=== PATIENT | female | born 1970 | race Caucasian/White ===

== ENCOUNTER 2018-09-11 22:21 | Inpatient (IN) | payer OTHER ==
[~2018-09-11] VITALS: Ht 160 cm; Wt 116.7 kg
[2018-09-11 23:26] LABS: BILIRUBIN,URINE NEGATIVE (NEG); CLARITY,URINE CLEAR; COLOR,URINE YELLOW; NITRITE,URINE NEGATIVE (NEG); PH,URINE 7.5; PROTEIN,URINE NEGATIVE (NEG-TRACE); UROBILINOGEN,URINE 0.2 mg/dL (0.2 mg/dL)
[2018-09-11 23:28] LABS: BASO # 0.1 x10^3/uL (0.0-0.2); BASO % 1 % (0-3); EOS # 0.2 x10^3/uL (0.0-0.7); EOS % 3 % (0-3); HEMATOCRIT 44.9 % (36.0-47.0); HEMOGLOBIN 14.7 g/dL (12.0-15.5); LYMPH # 2.3 x10^3/uL (1.0-4.8); LYMPH % 38 % (24-48); MEAN CORPUSCULAR HEMOGLOBIN 29 pg (25-35); MEAN CORPUSCULAR HGB CONC 33 g/dL (31-37); MEAN CORPUSCULAR VOLUME 89 fL (79-100); MONO # 0.5 x10^3/uL (0.0-1.1); MONO % 9 % (0-9); NEUT # 3.1 x10^3uL (1.8-7.7); NEUT % 50 % (31-73); PLATELET COUNT 119 x10^3/uL (140-400); RED BLOOD COUNT 5.07 x10^6/uL (3.50-5.40); RED CELL DISTRIBUTION WIDTH 12.8 % (11.5-14.5); WHITE BLOOD COUNT 6.2 x10^3/uL (4.0-11.0)
[2018-09-11] MEDS ORDERED: dilTIAZem IV PUSH 25 MG/5 ML VIAL IVP ONE (23:30)
[2018-09-11 23:33] LABS: BACTERIA,URINE 0 /HPF (0-FEW); RBC,URINE 0 /HPF (0-2); SQUAMOUS EPITHELIAL CELL,UR MOD /LPF
[2018-09-11 23:40] LABS: CALCIUM 9.1 mg/dL (8.5-10.1); CREATININE 0.6 mg/dL (0.6-1.0); GFR 105.8
[2018-09-11 23:46] LABS: ALBUMIN 3.8 g/dL (3.4-5.0); ALBUMIN/GLOBULIN RATIO 0.9 (1.0-1.7); MAGNESIUM 2.2 mg/dL (1.8-2.4); TOTAL BILIRUBIN 0.6 mg/dL (0.2-1.0); TOTAL PROTEIN 8.1 g/dL (6.4-8.2)
--- NOTE | 2018-09-12 00:26 | PHYS DOC ---
Past Medical History Past Medical History: A-Fib Additional Past Medical Histor: A FLUTTER Past Surgical History: Additional Past Surgical Histo: C SECTION X 4, HEART ABLATION Alcohol Use: None Drug Use: None Adult General Chief Complaint Chief Complaint: Palpitations [facility] HPI Patient is a 48-year-old female who presents with complaint of palpitations and chest pressure. Patient states that symptoms started earlier this evening and have progressively gotten worse. She states that she has a history of atrial flutter and had an ablation for that a few years back and then later had been diagnosed with intermittent atrial fibrillation. Patient is on Flecainide and a couple of other medications. Currently she rates the discomfort in her chest at about a 3 out of 10. She admits to some waves of nausea but denies any diaphoresis. Patient states that symptoms are worsened with exertion. Review of Systems Review of Systems Constitutional: Denies fever or chills [] Respiratory: Denies cough or shortness of breath [] Cardiovascular: No additional information not addressed in HPI [] GI: Denies abdominal pain. Admits to nausea without vomiting [] Integument: Denies rash or skin lesions [] Neurologic: Denies headache, focal weakness or sensory changes [] All other systems were reviewed and found to be within normal limits, except as documented in this note. Current Medications Current Medications Current Medications Medications (Trade) Dose Ordered Sig/Fer Start Time Stop Time Status Last Admin Dose Admin Diltiazem HCl (Cardizem Iv Push) 20 mg 1X ONCE 09/11/18 23:30 09/11/18 23:31 DC 09/11/18 23:23 20 MG Allergies Allergies Allergies Coded Allergies Type Severity Reaction Last Updated Verified morphine Allergy Intermediate 09/11/18 Yes Physical Exam Physical Exam Constitutional: Well developed, well nourished, no acute distress, non-toxic appearance. [] HENT: Normocephalic, atraumatic, bilateral external ears normal, oropharynx moist, no oral exudates, nose normal. [] Eyes: PERRLA, EOMI, conjunctiva normal, no discharge. [] Neck: Normal range of motion, no tenderness, supple, no stridor. [] Cardiovascular: Markedly tachycardic rate with irregular rhythm[] Lungs & Thorax: Bilateral breath sounds clear to auscultation [] Abdomen: Bowel sounds normal, soft, no tenderness. [] Skin: Warm, dry, no erythema, no rash. [] Extremities: No tenderness, no cyanosis, no clubbing, ROM intact, no edema. [] Neurologic: Alert and oriented X 3, no focal deficits noted. [] Current Patient Data Vital Signs Vital Signs Date Time Temp Pulse Resp B/P (MAP) Pulse Ox O2 Delivery O2 Flow Rate FiO2 09/11/18 23:29 111 18 136/73 (94) 99 Room Air 09/11/18 22:21 98.8 98.8 Lab Values Laboratory Tests Test 09/11/18 23:05 09/11/18 23:19 09/11/18 23:20 Urine Collection Type Unknown Urine Color Yellow Urine Clarity Clear Urine pH 7.5 Urine Specific [place] <=1.005 Urine Protein Negative mg/dL (NEG-TRACE) Urine Glucose (UA) Negative mg/dL (NEG) Urine Ketones (Stick) Negative mg/dL (NEG) Urine Blood Negative (NEG) Urine Nitrite Negative (NEG) Urine Bilirubin Negative (NEG) Urine Urobilinogen Dipstick 0.2 mg/dL (0.2 mg/dL) Urine Leukocyte Esterase Small (NEG) Urine RBC 0 /HPF (0-2) Urine WBC 1-4 /HPF (0-4) Urine Squamous Epithelial Cells Mod /LPF Urine Bacteria 0 /HPF (0-FEW) POC Urine HCG, Qualitative Hcg negative (Negative) White Blood Count 6.2 x10^3/uL (4.0-11.0) Red Blood Count 5.07 x10^6/uL (3.50-5.40) Hemoglobin 14.7 g/dL (12.0-15.5) Hematocrit 44.9 % (36.0-47.0) Mean Corpuscular Volume 89 fL (79-100) Mean Corpuscular Hemoglobin 29 pg (25-35) Mean Corpuscular Hemoglobin Concent 33 g/dL (31-37) Red Cell Distribution Width 12.8 % (11.5-14.5) Platelet Count 119 x10^3/uL (140-400) L Neutrophils (%) (Auto) 50 % (31-73) Lymphocytes (%) (Auto) 38 % (24-48) Monocytes (%) (Auto) 9 % (0-9) Eosinophils (%) (Auto) 3 % (0-3) Basophils (%) (Auto) 1 % (0-3) Neutrophils # (Auto) 3.1 x10^3uL (1.8-7.7) Lymphocytes # (Auto) 2.3 x10^3/uL (1.0-4.8) Monocytes # (Auto) 0.5 x10^3/uL (0.0-1.1) Eosinophils # (Auto) 0.2 x10^3/uL (0.0-0.7) Basophils # (Auto) 0.1 x10^3/uL (0.0-0.2) Sodium Level 142 mmol/L (136-145) Potassium Level 4.0 mmol/L (3.5-5.1) Chloride Level 105 mmol/L (98-107) Carbon Dioxide Level 27 mmol/L (21-32) Anion Gap 10 (6-14) Blood Urea Nitrogen 14 mg/dL (7-20) Creatinine 0.6 mg/dL (0.6-1.0) Estimated GFR (Cockcroft-Gault) 105.8 BUN/Creatinine Ratio 23 (6-20) H Glucose Level 119 mg/dL (70-99) H Calcium Level 9.1 mg/dL (8.5-10.1) Magnesium Level 2.2 mg/dL (1.8-2.4) Total Bilirubin 0.6 mg/dL (0.2-1.0) Aspartate Amino Transferase (AST) 29 U/L (15-37) Alanine Aminotransferase (ALT) 59 U/L (14-59) Alkaline Phosphatase 81 U/L (46-116) Troponin I Quantitative < 0.017 ng/mL (0.000-0.055) FR-Wjo-A-Type Natriuretic Peptide 52 pg/mL (0-124) Total Protein 8.1 g/dL (6.4-8.2) Albumin 3.8 g/dL (3.4-5.0) Albumin/Globulin Ratio 0.9 (1.0-1.7) L Thyroid Stimulating Hormone (TSH) 1.846 uIU/mL (0.358-3.74) Laboratory Tests 09/11/18 23:20 Laboratory Tests 09/11/18 23:20 EKG EKG [] Interpretation Time: EKG demonstrates atrial fibrillation with rapid ventricular response of 132. Radiology/Procedures Radiology/Procedures [] Impressions: Chest x-ray demonstrates no acute process. Course & Med Decision Making Course & Med Decision Making Pertinent Labs and Imaging studies reviewed. (See chart for details) [] Dragon Disclaimer Dragon Disclaimer This electronic medical record was generated, in whole or in part, using a voice recognition dictation system. Departure Departure Impression: Primary Impression: Atrial fibrillation with rapid ventricular response Additional Impression: Chest pain Disposition: ADMITTED INPATIENT Admitting Physician: Demetria Pham Condition: IMPROVED Referrals: UNKNOWN PCP NAME (PCP) Problem Qualifiers Additional Impression: Chest pain Chest pain type: unspecified Qualified Codes: R07.9 - Chest pain, unspecified MIRYAM TENORIO Jr. DO Sep 12, 2018 00:26
[2018-09-12] MEDS ORDERED: fentaNYL PF VIAL 100 MCG/2 ML VIAL IV PRN (00:30)
[2018-09-12] MEDS ORDERED: ONDANSETRON PF 4 MG/2 ML VIAL. IV PRN (00:30)
[2018-09-12] MEDS ORDERED: IV NORMAL SALINE 1000ML BAG 1,000 ML IV SCH (01:00)
[2018-09-12] MEDS ORDERED: FISH1CAP PO (02:48)
[2018-09-12] MEDS ORDERED: GLUC100018 PO (02:48)
[2018-09-12] MEDS ORDERED: ASPI81TA59 PO (02:48)
[2018-09-12] MEDS ORDERED: BISO5TAB2 PO (02:48)
[2018-09-12] MEDS ORDERED: FLEC100T PO (02:48)
[2018-09-12] MEDS ORDERED: CHOL10003 PO (02:48)
[2018-09-12 03:54] VITALS: BP 102/58
[2018-09-12 04:52] LABS: CHOLESTEROL/HDL RATIO 4.6
--- NOTE | 2018-09-12 06:52 | EKG ---
[facility] [address] [place] [address] Test Date: 2018-09-11 Test Time: 22:29:11 Pat Name: PRASAD AMAYA Department: Room: 244 1 Gender: F Material Processor: : 1970 Requested By: MIRYAM TENORIO Order Number: [id number] Reading MD: Dariusz Dow MD Measurements Intervals [place] Rate: 132 P: IN: QRS: 28 QRSD: 88 T: -6 QT: 276 QTc: 411 Interpretive Statements ATRIAL FIB./FLUTTER WITH RAPID VENTRICULAR RESPONSE ST & T ABNORMALITY, CONSIDER INFERIOR ISCHEMIA OR LEFT VENTRICULAR STRAIN T ABNORMALITY IN HIGH LATERAL LEADS ABNORMAL ECG Electronically Signed On 09-15-2018 16:08:42 CDT by Dariusz Dow MD
[2018-09-12 07:00] VITALS: BP 135/71
--- NOTE | 2018-09-12 08:23 | RAD ---
Indication:palpitations TECHNIQUE:Portable AP chest X-ray COMPARISON:None FINDINGS: Heart is normal in size. Mild prominence of bronchovascular markings seen. No focal consolidation. No pneumothorax or pleural effusion. Visualized bony thorax is within normal limits. IMPRESSION: Prominent bilateral bronchovascular markings may secondary to bronchitis or pulmonary vascular congestion. Electronically signed by: Adelso Hill DO (09/12/2018 8:20 AM) [facility]
--- NOTE | 2018-09-12 10:21 | PDOC2 ---
CARDIAC CONSULT DATE OF CONSULT Date of Consult DATE: 09/12/18 TIME: 10:17 REASON FOR CONSULT Reason for Consult: AFIB RVR with chest pain REFERRING PHYSICIAN Referring Physician: Manish SOURCE Source: Chart review, Patient HISTORY OF PRESENT ILLNESS HISTORY OF PRESENT ILLNESS This is a pleasant 48 yo female admitted for complains of palpitations. Pt has been exercising 30 minutes a day with cardio in the last month. She also helped her friend clean her basement the other day and was coughing probably from mold exposure but no significant coughing yesterday. She was sitting last night when she felt flushed and dizzy then had the chest pressure and felt that her heart rate was fast. She has hx of AFIB and atrial flutter and upon admission to ED she was noted with afib RVR. She has been taking bisoprolol, flecainide and ASA since 2005. Reports being initially diagnosed with atrial flutter in 2002 to which she had a cardiac ablation. There has been no changes in her health recently. She has CRISTI and uses her CPAP and her CRISTI has been controlled. No excessive caffeine use, no use of decongestants and no recent injury or falls. No passing out. She is due to see Dr. Escoto her silviculturist from in a month. No significant chnages in her wt. No recent fever, chills and no diarrhea, nausea or vomiting. PAST MEDICAL HISTORY Cardiovascular: AFIB Musculoskeletal: Osteoarthritis, Other (morbid obesity) PAST SURGICAL HISTORY Past Surgical History: (x4), Other (Cardiac ablation) FAMILY HISTORY Family History: Other (arrhythmia (mother); daughter has WPW) SOCIAL HISTORY Smoke: No ALCOHOL: none Drugs: None Lives: with Family (spouse) CURRENT MEDICATIONS CURRENT MEDICATIONS Current Medications Medications (Trade) Dose Ordered Sig/Fer Route PRN Reason Start Time Stop Time Status Last Admin Dose Admin Diltiazem HCl (Cardizem Iv Push) 20 mg 1X ONCE IVP 09/11/18 23:30 09/11/18 23:31 DC 09/11/18 23:23 Sodium Chloride 1,000 ml @ 100 mls/hr Q10H IV 09/12/18 01:00 09/13/18 00:59 09/12/18 01:40 ALLERGIES ALLERGIES: Coded Allergies: morphine (Verified Allergy, Intermediate, 09/11/18) ROS Review of System 14 point ROS evaluated with pertinent positives noted per HPI PHYSICAL EXAM General: Alert, Oriented X3, Cooperative, No acute distress HEENT: Atraumatic, Mucous membr. moist/pink Lungs: Clear to auscultation, Normal air movement Heart: Regular rate (SR), Normal S1, Normal S2, No murmurs Abdomen: Soft, No tenderness Extremities: No cyanosis, No edema Skin: No breakdown, No significant lesion Neuro: Normal speech, Sensation intact Psych/Mental Status: Mental status NL, Mood NL MUSCULOSKELETAL: Osteoarthritic changes both hands VITALS VITALS Vital Signs Date Time Temp Pulse Resp B/P (MAP) Pulse Ox O2 Delivery O2 Flow Rate FiO2 09/12/18 08:00 Room Air 09/12/18 07:00 97.9 70 20 135/71 (92) 96 97.9 LABS Lab: Laboratory Tests Test 09/11/18 23:05 09/11/18 23:19 09/11/18 23:20 09/12/18 03:30 Urine Collection Type Unknown Urine Color Yellow Urine Clarity Clear Urine pH 7.5 Urine Specific [place] <=1.005 Urine Protein Negative mg/dL (NEG-TRACE) Urine Glucose (UA) Negative mg/dL (NEG) Urine Ketones (Stick) Negative mg/dL (NEG) Urine Blood Negative (NEG) Urine Nitrite Negative (NEG) Urine Bilirubin Negative (NEG) Urine Urobilinogen Dipstick 0.2 mg/dL (0.2 mg/dL) Urine Leukocyte Esterase Small (NEG) Urine RBC 0 /HPF (0-2) Urine WBC 1-4 /HPF (0-4) Urine Squamous Epithelial Cells Mod /LPF Urine Bacteria 0 /HPF (0-FEW) Bedside Urine HCG, Qualitative Hcg negative (Negative) White Blood Count 6.2 x10^3/uL (4.0-11.0) Red Blood Count 5.07 x10^6/uL (3.50-5.40) Hemoglobin 14.7 g/dL (12.0-15.5) Hematocrit 44.9 % (36.0-47.0) Mean Corpuscular Volume 89 fL (79-100) Mean Corpuscular Hemoglobin 29 pg (25-35) Mean Corpuscular Hemoglobin Concent 33 g/dL (31-37) Red Cell Distribution Width 12.8 % (11.5-14.5) Platelet Count 119 x10^3/uL (140-400) Neutrophils (%) (Auto) 50 % (31-73) Lymphocytes (%) (Auto) 38 % (24-48) Monocytes (%) (Auto) 9 % (0-9) Eosinophils (%) (Auto) 3 % (0-3) Basophils (%) (Auto) 1 % (0-3) Neutrophils # (Auto) 3.1 x10^3uL (1.8-7.7) Lymphocytes # (Auto) 2.3 x10^3/uL (1.0-4.8) Monocytes # (Auto) 0.5 x10^3/uL (0.0-1.1) Eosinophils # (Auto) 0.2 x10^3/uL (0.0-0.7) Basophils # (Auto) 0.1 x10^3/uL (0.0-0.2) Sodium Level 142 mmol/L (136-145) Potassium Level 4.0 mmol/L (3.5-5.1) Chloride Level 105 mmol/L (98-107) Carbon Dioxide Level 27 mmol/L (21-32) Anion Gap 10 (6-14) Blood Urea Nitrogen 14 mg/dL (7-20) Creatinine 0.6 mg/dL (0.6-1.0) Estimated GFR (Cockcroft-Gault) 105.8 BUN/Creatinine Ratio 23 (6-20) Glucose Level 119 mg/dL (70-99) Calcium Level 9.1 mg/dL (8.5-10.1) Magnesium Level 2.2 mg/dL (1.8-2.4) Total Bilirubin 0.6 mg/dL (0.2-1.0) Aspartate Amino Transf (AST/SGOT) 29 U/L (15-37) Alanine Aminotransferase (ALT/SGPT) 59 U/L (14-59) Alkaline Phosphatase 81 U/L (46-116) Troponin I Quantitative < 0.017 ng/mL (0.000-0.055) < 0.017 ng/mL (0.000-0.055) OZ-Hgs-I-Type Natriuretic Peptide 52 pg/mL (0-124) Total Protein 8.1 g/dL (6.4-8.2) Albumin 3.8 g/dL (3.4-5.0) Albumin/Globulin Ratio 0.9 (1.0-1.7) Thyroid Stimulating Hormone (TSH) 1.846 uIU/mL (0.358-3.74) Triglycerides Level 70 mg/dL (0-150) Cholesterol Level 190 mg/dL (0-200) LDL Cholesterol, Calculated 135 mg/dL (0-100) VLDL Cholesterol, Calculated 14 mg/dL (0-40) Non-HDL Cholesterol Calculated 149 mg/dL (0-129) HDL Cholesterol 41 mg/dL (40-60) Cholesterol/HDL Ratio 4.6 Test 09/12/18 06:20 Troponin I Quantitative < 0.017 ng/mL (0.000-0.055) ASSESSMENT/PLAN ASSESSMENT/PLAN 1. AFIB RVR: paroxysmal by hx with past ablation. SR after cardizem IV 2. Morbid obesity 3. HLP 4. CRISTI: with CPAP use at home 5. Contraception: Mirena in place Recommendations 1. TTE 2. Diet modification and wt loss 3. Await EKG. Continue flecainide and switching from zebeta to cardizem CD pending TTE and EKG 4. Will need outpt event monitor and note AFIB burden for further consideration for repeat EP ablation. Will defer this to cardiology whom she will see next month. 5. also would need to consider outpt stress test if none done recently. VICKIE HARVEY APRN Sep 12, 2018 10:21
[2018-09-12 10:36] VITALS: BP 144/85
--- NOTE | 2018-09-12 10:39 | PDOC1 ---
History and Physical Date of Admission Date of Admission 09/12/18 Identification/Chief Complaint Chief Complaint Palpitations Problems: (1) Atrial fibrillation with rapid ventricular response (2) Chest pain Source Source: Chart review, Patient History of Present Illness History of Present Illness Patient with past medical history of atrial fibrillation status post ablation comes somnolence that palpitations sensation of heart racing and chest discomfort she describes as a pressure no sensation of impending doom nausea vomiting or diaphoresis associated with the events. The patient denies recent changes to her medications. The patient denies changes in her medications no herbal supplements no history of energy drinks intake ER history: Patient is a 48-year-old female who presents with complaint of palpitations and chest pressure. Patient states that symptoms started earlier this evening and have progressively gotten worse. She states that she has a history of atrial flutter and had an ablation for that a few years back and then later had been diagnosed with intermittent atrial fibrillation. Patient is on Flecainide and a couple of other medications. Currently she rates the discomfort in her chest at about a 3 out of 10. She admits to some waves of nausea but denies any diaphoresis. Patient states that symptoms are worsened with exertion. Past Medical History Cardiovascular: AFIB Past Surgical History Past Surgical History: (x4), Other (Cardiac ablation) Current Problem List Problem List Problems Medical Problems: (1) Atrial fibrillation with rapid ventricular response Status: Acute (2) Chest pain Status: Acute Current Medications Current Medications Current Medications Medications (Trade) Dose Ordered Sig/Fer Start Time Stop Time Status Last Admin Dose Admin Diltiazem HCl (Cardizem Iv Push) 20 mg 1X ONCE 09/11/18 23:30 09/11/18 23:31 DC 09/11/18 23:23 20 MG Fentanyl Citrate (Fentanyl 2ml Vial) 25 mcg PRN Q2HR PRN 09/12/18 00:30 Ondansetron HCl (Zofran) 4 mg PRN Q8HRS PRN 09/12/18 00:30 09/13/18 00:29 Sodium Chloride 1,000 ml @ 100 mls/hr Q10H 09/12/18 01:00 09/13/18 00:59 09/12/18 01:40 100 MLS/HR Allergies Allergies Allergies Coded Allergies Type Severity Reaction Last Updated Verified morphine Allergy Intermediate 09/11/18 Yes ROS Review of System CONSTITUTIONAL: No fever or chills EYES: No recent changes SKIN: No rash or itching CARDIOVASCULAR: No chest pain, syncope, palpitations, or edema RESPIRATORY: No SOB or cough GASTROINTESTINAL: No nausea, vomiting or abdominal pain NEUROLOGICAL: No headaches or weakness ENDOCRINE: No cold or heat intolerance GENITOURINARY: No urgency or frequency of urination MUSCULOSKELETAL: No back pain or joint pain LYMPHATICS: No enlarged lymph nodes PSYCHIATRIC: No anxiety or depression Physical Exam Physical Exam Gen.: well-developed well-nourished in no apparent distress Head: Normal shape atraumatic Eyes: Pupils equal reactive to light and accommodation, normal conjunctivae and lids Ears: Normal shape Nose: Normal shape no trauma Mouth: No exudates of the back of throat no thrush no lesions Neck: Supple no JVD no carotid bruit or lymphadenopathy no thyromegaly Chest: Lungs clear to auscultation with good inspiratory effort no crackles rales or rhonchi Cardiovascular: S1-S2 regular rhythm no murmurs gallops or rubs Abdomen: Bowel sounds present soft nontender no hepatosplenomegaly appreciated sign Extremities: No clubbing no cyanosis no edema peripheral pulses palpated bilaterally Neurological: Alert awake oriented in person time place and situation, cranial nerves II through XII intact, no motor or sensory deficits appreciated Psych: Appropriate mood, cooperative Vitals Vitals Vital Signs Date Time Temp Pulse Resp B/P (MAP) Pulse Ox O2 Delivery O2 Flow Rate FiO2 09/12/18 08:00 Room Air 09/12/18 07:00 97.9 70 20 135/71 (92) 96 97.9 Labs Labs Laboratory Tests Test 09/11/18 23:05 09/11/18 23:19 09/11/18 23:20 09/12/18 03:30 Urine Collection Type Unknown Urine Color Yellow Urine Clarity Clear Urine pH 7.5 Urine Specific [place] <=1.005 Urine Protein Negative mg/dL (NEG-TRACE) Urine Glucose (UA) Negative mg/dL (NEG) Urine Ketones (Stick) Negative mg/dL (NEG) Urine Blood Negative (NEG) Urine Nitrite Negative (NEG) Urine Bilirubin Negative (NEG) Urine Urobilinogen Dipstick 0.2 mg/dL (0.2 mg/dL) Urine Leukocyte Esterase Small (NEG) Urine RBC 0 /HPF (0-2) Urine WBC 1-4 /HPF (0-4) Urine Squamous Epithelial Cells Mod /LPF Urine Bacteria 0 /HPF (0-FEW) Bedside Urine HCG, Qualitative Hcg negative (Negative) White Blood Count 6.2 x10^3/uL (4.0-11.0) Red Blood Count 5.07 x10^6/uL (3.50-5.40) Hemoglobin 14.7 g/dL (12.0-15.5) Hematocrit 44.9 % (36.0-47.0) Mean Corpuscular Volume 89 fL (79-100) Mean Corpuscular Hemoglobin 29 pg (25-35) Mean Corpuscular Hemoglobin Concent 33 g/dL (31-37) Red Cell Distribution Width 12.8 % (11.5-14.5) Platelet Count 119 x10^3/uL (140-400) Neutrophils (%) (Auto) 50 % (31-73) Lymphocytes (%) (Auto) 38 % (24-48) Monocytes (%) (Auto) 9 % (0-9) Eosinophils (%) (Auto) 3 % (0-3) Basophils (%) (Auto) 1 % (0-3) Neutrophils # (Auto) 3.1 x10^3uL (1.8-7.7) Lymphocytes # (Auto) 2.3 x10^3/uL (1.0-4.8) Monocytes # (Auto) 0.5 x10^3/uL (0.0-1.1) Eosinophils # (Auto) 0.2 x10^3/uL (0.0-0.7) Basophils # (Auto) 0.1 x10^3/uL (0.0-0.2) Sodium Level 142 mmol/L (136-145) Potassium Level 4.0 mmol/L (3.5-5.1) Chloride Level 105 mmol/L (98-107) Carbon Dioxide Level 27 mmol/L (21-32) Anion Gap 10 (6-14) Blood Urea Nitrogen 14 mg/dL (7-20) Creatinine 0.6 mg/dL (0.6-1.0) Estimated GFR (Cockcroft-Gault) 105.8 BUN/Creatinine Ratio 23 (6-20) Glucose Level 119 mg/dL (70-99) Calcium Level 9.1 mg/dL (8.5-10.1) Magnesium Level 2.2 mg/dL (1.8-2.4) Total Bilirubin 0.6 mg/dL (0.2-1.0) Aspartate Amino Transf (AST/SGOT) 29 U/L (15-37) Alanine Aminotransferase (ALT/SGPT) 59 U/L (14-59) Alkaline Phosphatase 81 U/L (46-116) Troponin I Quantitative < 0.017 ng/mL (0.000-0.055) < 0.017 ng/mL (0.000-0.055) TW-Phj-P-Type Natriuretic Peptide 52 pg/mL (0-124) Total Protein 8.1 g/dL (6.4-8.2) Albumin 3.8 g/dL (3.4-5.0) Albumin/Globulin Ratio 0.9 (1.0-1.7) Thyroid Stimulating Hormone (TSH) 1.846 uIU/mL (0.358-3.74) Triglycerides Level 70 mg/dL (0-150) Cholesterol Level 190 mg/dL (0-200) LDL Cholesterol, Calculated 135 mg/dL (0-100) VLDL Cholesterol, Calculated 14 mg/dL (0-40) Non-HDL Cholesterol Calculated 149 mg/dL (0-129) HDL Cholesterol 41 mg/dL (40-60) Cholesterol/HDL Ratio 4.6 Test 09/12/18 06:20 Troponin I Quantitative < 0.017 ng/mL (0.000-0.055) Laboratory Tests Test 09/11/18 23:05 09/11/18 23:19 09/11/18 23:20 09/12/18 03:30 Urine Collection Type Unknown Urine Color Yellow Urine Clarity Clear Urine pH 7.5 Urine Specific [place] <=1.005 Urine Protein Negative mg/dL (NEG-TRACE) Urine Glucose (UA) Negative mg/dL (NEG) Urine Ketones (Stick) Negative mg/dL (NEG) Urine Blood Negative (NEG) Urine Nitrite Negative (NEG) Urine Bilirubin Negative (NEG) Urine Urobilinogen Dipstick 0.2 mg/dL (0.2 mg/dL) Urine Leukocyte Esterase Small (NEG) Urine RBC 0 /HPF (0-2) Urine WBC 1-4 /HPF (0-4) Urine Squamous Epithelial Cells Mod /LPF Urine Bacteria 0 /HPF (0-FEW) Bedside Urine HCG, Qualitative Hcg negative (Negative) White Blood Count 6.2 x10^3/uL (4.0-11.0) Red Blood Count 5.07 x10^6/uL (3.50-5.40) Hemoglobin 14.7 g/dL (12.0-15.5) Hematocrit 44.9 % (36.0-47.0) Mean Corpuscular Volume 89 fL (79-100) Mean Corpuscular Hemoglobin 29 pg (25-35) Mean Corpuscular Hemoglobin Concent 33 g/dL (31-37) Red Cell Distribution Width 12.8 % (11.5-14.5) Platelet Count 119 x10^3/uL (140-400) Neutrophils (%) (Auto) 50 % (31-73) Lymphocytes (%) (Auto) 38 % (24-48) Monocytes (%) (Auto) 9 % (0-9) Eosinophils (%) (Auto) 3 % (0-3) Basophils (%) (Auto) 1 % (0-3) Neutrophils # (Auto) 3.1 x10^3uL (1.8-7.7) Lymphocytes # (Auto) 2.3 x10^3/uL (1.0-4.8) Monocytes # (Auto) 0.5 x10^3/uL (0.0-1.1) Eosinophils # (Auto) 0.2 x10^3/uL (0.0-0.7) Basophils # (Auto) 0.1 x10^3/uL (0.0-0.2) Sodium Level 142 mmol/L (136-145) Potassium Level 4.0 mmol/L (3.5-5.1) Chloride Level 105 mmol/L (98-107) Carbon Dioxide Level 27 mmol/L (21-32) Anion Gap 10 (6-14) Blood Urea Nitrogen 14 mg/dL (7-20) Creatinine 0.6 mg/dL (0.6-1.0) Estimated GFR (Cockcroft-Gault) 105.8 BUN/Creatinine Ratio 23 (6-20) Glucose Level 119 mg/dL (70-99) Calcium Level 9.1 mg/dL (8.5-10.1) Magnesium Level 2.2 mg/dL (1.8-2.4) Total Bilirubin 0.6 mg/dL (0.2-1.0) Aspartate Amino Transf (AST/SGOT) 29 U/L (15-37) Alanine Aminotransferase (ALT/SGPT) 59 U/L (14-59) Alkaline Phosphatase 81 U/L (46-116) Troponin I Quantitative < 0.017 ng/mL (0.000-0.055) < 0.017 ng/mL (0.000-0.055) HF-Gnm-Z-Type Natriuretic Peptide 52 pg/mL (0-124) Total Protein 8.1 g/dL (6.4-8.2) Albumin 3.8 g/dL (3.4-5.0) Albumin/Globulin Ratio 0.9 (1.0-1.7) Thyroid Stimulating Hormone (TSH) 1.846 uIU/mL (0.358-3.74) Triglycerides Level 70 mg/dL (0-150) Cholesterol Level 190 mg/dL (0-200) LDL Cholesterol, Calculated 135 mg/dL (0-100) VLDL Cholesterol, Calculated 14 mg/dL (0-40) Non-HDL Cholesterol Calculated 149 mg/dL (0-129) HDL Cholesterol 41 mg/dL (40-60) Cholesterol/HDL Ratio 4.6 Test 09/12/18 06:20 Troponin I Quantitative < 0.017 ng/mL (0.000-0.055) VTE Prophylaxis Ordered VTE Prophylaxis Devices: Yes VTE Pharmacological Prophylaxi: Yes Assessment/Plan Assessment/Plan Atrial fibrillation with rapid ventricular response History of previous ablation Dyslipidemia with LDL not at target Plan Consult cardiology Follow recommendations from fashion consultant selling Resume home medications reassess later in the day she may be able to be discharged. Problem Qualifiers (1) Chest pain: Chest pain type: unspecified Qualified Codes: R07.9 - Chest pain, unspecified ZONIA RODRÍGUEZ MD Sep 12, 2018 10:39
--- NOTE | 2018-09-12 11:05 | CARD ---
MR#: [id number] Date of Study: 09/12/2018 Ordering Physician: CHARISSA CHOI, Referring Physician: FRIEDA NAIDU, Tech: Deirdre Medina APPROVED REPORT EXAM: Two-dimensional and M-mode echocardiogram with Doppler and color Doppler. Other Information Quality : AverageHR: 62bpm Rhythm : NSR INDICATION Atrial Fibrillation Chest Pain 2D DIMENSIONS RVDd2.0 (2.9-3.5cm)Left Atrium(2D)3.6 (1.6-4.0cm) IVSd1.1 (0.7-1.1cm)Aortic Root(2D)2.9 (2.0-3.7cm) LVDd5.1 (3.9-5.9cm)LVOT Diameter1.8 (1.8-2.4cm) PWd1.2 (0.7-1.1cm)LVDs2.7 (2.5-4.0cm) FS (%) 47.3 %SV98.6 ml LVEF(%)78.4 (>50%) Aortic Valve AoV Peak Baldomero.163.8cm/sAoV VTI34.3cm AO Peak GR.10.7mmHgLVOT Peak Baldomero.122.2cm/s LVOT VTI 27.44cmAO Mean GR.6mmHg VASILE (VMAX)1.42gx2TAG (VTI)2.09cm2 Mitral Valve MV E Xgzanxci80.8cm/sMV DECEL UQJI210os MV A Ilvetigh00.8cm/sMV NOA57fe E/A Ratio1.1MVA (PHT)4.01cm2 TDI E/Lateral E'8.6E/Medial E'11.5 Pulmonary Valve PV Peak Trtbwrqo846.3cm/sPV Peak Grad.9mmHg Tricuspid Valve TR P. Zkxqsymb410kj/sRAP JEMMEFRT3xbXw TR Peak Gr.16bcVuSRGY56skTi Pulmonary Vein S1 Rtzwpbtk14.7cm/sD2 Qvpiqyxk59.3cm/s PVa vddjmlqf316trgo LEFT VENTRICLE The left ventricle is normal size. There is borderline concentric left ventricular hypertrophy. The l eft ventricular systolic function is normal and the ejection fraction is within normal range. The Eje ction Fraction is >55%. There is normal LV segmental wall motion. The left ventricular diastolic func tion and filling is normal for age. RIGHT VENTRICLE The right ventricle is normal size. There is normal right ventricular wall thickness. The right ventr icular systolic function is normal. ATRIA The left atrium size is normal. The right atrium size is normal. The interatrial septum is intact wit h no evidence for an atrial septal defect or patent foramen ovale as noted on 2-D or Doppler imaging. AORTIC VALVE The aortic valve is normal in structure and function. Doppler and Color Flow revealed no significant aortic regurgitation. There is no significant aortic valvular stenosis. MITRAL VALVE The mitral valve is normal in structure and function. There is no evidence of mitral valve prolapse. There is no mitral valve stenosis. Doppler and Color-flow revealed trace mitral regurgitation. TRICUSPID VALVE The tricuspid valve is normal in structure and function. Doppler and Color Flow revealed trace tricus pid regurgitation with an estimated PAP of 24 mmHg. There is no tricuspid valve stenosis. PULMONIC VALVE The pulmonic valve is not well visualized. Doppler and Color Flow revealed no pulmonic valvular regur gitation. GREAT VESSELS The aortic root is normal in size. The IVC is normal in size and collapses >50% with inspiration. PERICARDIAL EFFUSION There is no evidence of significant pericardial effusion. Critical Notification Critical Value: No <Conclusion> The left ventricular systolic function is normal and the ejection fraction is within normal range. Th e Ejection Fraction is >55%. There is normal LV segmental wall motion. Signed by : Dariusz Dow, Electronically Approved : 09/12/2018 11:04:30
[2018-09-12] MEDS ORDERED: ASPIRIN CHEWABLE 81 MG TABLET. PO SCH (11:30)
[2018-09-12] MEDS ORDERED: ATENOLOL 25 MG TABLET. PO SCH (11:30)
[2018-09-12] MEDS ORDERED: CHOLECALCIFEROL (VITAMIN D3) 1,000 UNIT TABLET PO SCH (11:30)
[2018-09-12] MEDS ORDERED: FLECAINIDE ACETATE 50 MG TABLET. PO SCH (11:30)
[2018-09-12] MEDS ORDERED: OMEGA-3 FATTY ACIDS/FISH OIL 1,000 MG CAPSULE. PO SCH (11:30)
--- NOTE | 2018-09-12 11:47 | NUR ---
SS following for discharge planning. SS reviewed pt chart and met with pt's RN. Pt is from home with spouse and is currently on room air. No discharge needs noted at this time. SS will continue to follow for pending discharge needs.
--- NOTE | 2018-09-12 12:55 | EKG ---
[facility] [address] [place] [address] Test Date: 1999-07-04 Test Time: 20:28:39 Pat Name: PRASAD AMAYA Department: Room: 244 Gender: F Pick Up Attendant: SHANAE : 1970 Requested By: VICKIE HARVEY Order Number: [id number] Reading MD: Dariusz Dow MD Measurements Intervals [place] Rate: 52 P: 28 DC: 208 QRS: 28 QRSD: 78 T: 25 QT: 432 QTc: 404 Interpretive Statements SINUS RHYTHM Electronically Signed On 09-13-2018 21:24:51 CDT by Dariusz Dow MD
[2018-09-12 14:34] VITALS: BP 143/63
[2018-09-12] MEDS ORDERED: dilTIAZem HCL PO (15:05)
--- NOTE | 2018-09-12 15:13 | PDOC3 ---
Discharge Summary Visit Information Date of Admission: Sep 12, 2018 Date of Discharge: Sep 12, 2018 Admitting Diagnosis Comment: Atrial fibrillation with rapid ventricular response Final Diagnosis Problems Medical Problems: (1) Atrial fibrillation with rapid ventricular response Status: Acute (2) Chest pain Status: Acute Brief Hospital Course Allergies Allergies Coded Allergies Type Severity Reaction Last Updated Verified morphine Allergy Intermediate 09/11/18 Yes Vital Signs Vital Signs Date Time Temp Pulse Resp B/P (MAP) Pulse Ox O2 Delivery O2 Flow Rate FiO2 09/12/18 14:34 98.0 64 20 143/63 (89) 98 Room Air 98.0 Lab Results Laboratory Tests Test 09/11/18 23:05 09/11/18 23:19 09/11/18 23:20 09/12/18 03:30 Urine Collection Type Unknown Urine Color Yellow Urine Clarity Clear Urine pH 7.5 Urine Specific [place] <=1.005 Urine Protein Negative mg/dL (NEG-TRACE) Urine Glucose (UA) Negative mg/dL (NEG) Urine Ketones (Stick) Negative mg/dL (NEG) Urine Blood Negative (NEG) Urine Nitrite Negative (NEG) Urine Bilirubin Negative (NEG) Urine Urobilinogen Dipstick 0.2 mg/dL (0.2 mg/dL) Urine Leukocyte Esterase Small (NEG) Urine RBC 0 /HPF (0-2) Urine WBC 1-4 /HPF (0-4) Urine Squamous Epithelial Cells Mod /LPF Urine Bacteria 0 /HPF (0-FEW) Bedside Urine HCG, Qualitative Hcg negative (Negative) White Blood Count 6.2 x10^3/uL (4.0-11.0) Red Blood Count 5.07 x10^6/uL (3.50-5.40) Hemoglobin 14.7 g/dL (12.0-15.5) Hematocrit 44.9 % (36.0-47.0) Mean Corpuscular Volume 89 fL (79-100) Mean Corpuscular Hemoglobin 29 pg (25-35) Mean Corpuscular Hemoglobin Concent 33 g/dL (31-37) Red Cell Distribution Width 12.8 % (11.5-14.5) Platelet Count 119 x10^3/uL (140-400) Neutrophils (%) (Auto) 50 % (31-73) Lymphocytes (%) (Auto) 38 % (24-48) Monocytes (%) (Auto) 9 % (0-9) Eosinophils (%) (Auto) 3 % (0-3) Basophils (%) (Auto) 1 % (0-3) Neutrophils # (Auto) 3.1 x10^3uL (1.8-7.7) Lymphocytes # (Auto) 2.3 x10^3/uL (1.0-4.8) Monocytes # (Auto) 0.5 x10^3/uL (0.0-1.1) Eosinophils # (Auto) 0.2 x10^3/uL (0.0-0.7) Basophils # (Auto) 0.1 x10^3/uL (0.0-0.2) Sodium Level 142 mmol/L (136-145) Potassium Level 4.0 mmol/L (3.5-5.1) Chloride Level 105 mmol/L (98-107) Carbon Dioxide Level 27 mmol/L (21-32) Anion Gap 10 (6-14) Blood Urea Nitrogen 14 mg/dL (7-20) Creatinine 0.6 mg/dL (0.6-1.0) Estimated GFR (Cockcroft-Gault) 105.8 BUN/Creatinine Ratio 23 (6-20) Glucose Level 119 mg/dL (70-99) Calcium Level 9.1 mg/dL (8.5-10.1) Magnesium Level 2.2 mg/dL (1.8-2.4) Total Bilirubin 0.6 mg/dL (0.2-1.0) Aspartate Amino Transf (AST/SGOT) 29 U/L (15-37) Alanine Aminotransferase (ALT/SGPT) 59 U/L (14-59) Alkaline Phosphatase 81 U/L (46-116) Troponin I Quantitative < 0.017 ng/mL (0.000-0.055) < 0.017 ng/mL (0.000-0.055) UD-Kqs-N-Type Natriuretic Peptide 52 pg/mL (0-124) Total Protein 8.1 g/dL (6.4-8.2) Albumin 3.8 g/dL (3.4-5.0) Albumin/Globulin Ratio 0.9 (1.0-1.7) Thyroid Stimulating Hormone (TSH) 1.846 uIU/mL (0.358-3.74) Triglycerides Level 70 mg/dL (0-150) Cholesterol Level 190 mg/dL (0-200) LDL Cholesterol, Calculated 135 mg/dL (0-100) VLDL Cholesterol, Calculated 14 mg/dL (0-40) Non-HDL Cholesterol Calculated 149 mg/dL (0-129) HDL Cholesterol 41 mg/dL (40-60) Cholesterol/HDL Ratio 4.6 Test 09/12/18 06:20 Troponin I Quantitative < 0.017 ng/mL (0.000-0.055) Laboratory Tests Test 09/11/18 23:05 09/11/18 23:19 09/11/18 23:20 09/12/18 03:30 Urine Collection Type Unknown Urine Color Yellow Urine Clarity Clear Urine pH 7.5 Urine Specific [place] <=1.005 Urine Protein Negative mg/dL (NEG-TRACE) Urine Glucose (UA) Negative mg/dL (NEG) Urine Ketones (Stick) Negative mg/dL (NEG) Urine Blood Negative (NEG) Urine Nitrite Negative (NEG) Urine Bilirubin Negative (NEG) Urine Urobilinogen Dipstick 0.2 mg/dL (0.2 mg/dL) Urine Leukocyte Esterase Small (NEG) Urine RBC 0 /HPF (0-2) Urine WBC 1-4 /HPF (0-4) Urine Squamous Epithelial Cells Mod /LPF Urine Bacteria 0 /HPF (0-FEW) Bedside Urine HCG, Qualitative Hcg negative (Negative) White Blood Count 6.2 x10^3/uL (4.0-11.0) Red Blood Count 5.07 x10^6/uL (3.50-5.40) Hemoglobin 14.7 g/dL (12.0-15.5) Hematocrit 44.9 % (36.0-47.0) Mean Corpuscular Volume 89 fL (79-100) Mean Corpuscular Hemoglobin 29 pg (25-35) Mean Corpuscular Hemoglobin Concent 33 g/dL (31-37) Red Cell Distribution Width 12.8 % (11.5-14.5) Platelet Count 119 x10^3/uL (140-400) Neutrophils (%) (Auto) 50 % (31-73) Lymphocytes (%) (Auto) 38 % (24-48) Monocytes (%) (Auto) 9 % (0-9) Eosinophils (%) (Auto) 3 % (0-3) Basophils (%) (Auto) 1 % (0-3) Neutrophils # (Auto) 3.1 x10^3uL (1.8-7.7) Lymphocytes # (Auto) 2.3 x10^3/uL (1.0-4.8) Monocytes # (Auto) 0.5 x10^3/uL (0.0-1.1) Eosinophils # (Auto) 0.2 x10^3/uL (0.0-0.7) Basophils # (Auto) 0.1 x10^3/uL (0.0-0.2) Sodium Level 142 mmol/L (136-145) Potassium Level 4.0 mmol/L (3.5-5.1) Chloride Level 105 mmol/L (98-107) Carbon Dioxide Level 27 mmol/L (21-32) Anion Gap 10 (6-14) Blood Urea Nitrogen 14 mg/dL (7-20) Creatinine 0.6 mg/dL (0.6-1.0) Estimated GFR (Cockcroft-Gault) 105.8 BUN/Creatinine Ratio 23 (6-20) Glucose Level 119 mg/dL (70-99) Calcium Level 9.1 mg/dL (8.5-10.1) Magnesium Level 2.2 mg/dL (1.8-2.4) Total Bilirubin 0.6 mg/dL (0.2-1.0) Aspartate Amino Transf (AST/SGOT) 29 U/L (15-37) Alanine Aminotransferase (ALT/SGPT) 59 U/L (14-59) Alkaline Phosphatase 81 U/L (46-116) Troponin I Quantitative < 0.017 ng/mL (0.000-0.055) < 0.017 ng/mL (0.000-0.055) JH-Thh-Z-Type Natriuretic Peptide 52 pg/mL (0-124) Total Protein 8.1 g/dL (6.4-8.2) Albumin 3.8 g/dL (3.4-5.0) Albumin/Globulin Ratio 0.9 (1.0-1.7) Thyroid Stimulating Hormone (TSH) 1.846 uIU/mL (0.358-3.74) Triglycerides Level 70 mg/dL (0-150) Cholesterol Level 190 mg/dL (0-200) LDL Cholesterol, Calculated 135 mg/dL (0-100) VLDL Cholesterol, Calculated 14 mg/dL (0-40) Non-HDL Cholesterol Calculated 149 mg/dL (0-129) HDL Cholesterol 41 mg/dL (40-60) Cholesterol/HDL Ratio 4.6 Test 09/12/18 06:20 Troponin I Quantitative < 0.017 ng/mL (0.000-0.055) Brief Hospital Course Ms. Archuleta is a 48 old female with past medical history of atrial flutter status post ablation several years ago. She came in with a in acute ventricular response episode. Patient was given Cardizem and she converted to normal sinus rhythm. She had an echocardiogram done and crop consultant switch her beta iona to a calcium channel iona. She was deemed appropriate from their standpoint to leave institution her ejection fraction on echocardiogram was greater than 55% and she had normal LV segmental wall motion. She was in good spirits to be dismissed home she will follow up with her pet care associate in the outpatient setting Discharge Information Condition at Discharge: Improved Follow Up: Weeks Disposition/Orders: D/C to Home Scheduled Aspirin (Children's Aspirin) 81 Mg Tab.chew, 81 MG PO DAILY for heart health , ( Reported) Entered as Reported by: CLAUDIO OWEN RN on 09/12/18247 Last Action: Continued on 09/12/181039 by ZONIA RODRÍGUEZ MD Cholecalciferol (Vitamin D3) (Vitamin D3) 1,000 Unit Tablet, 2 TAB PO DAILY for supplement, #30 Ref 5 (Reported) Entered as Reported by: CLAUDIO OWEN RN on 09/12/18247 Last Action: Continued on 09/12/181039 by ZONIA RODRÍGUEZ MD Fish Oil/Dha/Epa (Fish Oil 1,200 Mg Fish Oil) 1 Each Capsule, 1 EACH PO DAILY for supplement , (Reported) Entered as Reported by: CLAUDIO OWEN RN on 09/12/18247 Last Action: Converted on 09/12/181039 by ZONIA RODRÍGUEZ MD Flecainide Acetate (Flecainide Acetate) 100 Mg Tablet, 1 TAB PO BID for rhythm control , #60 Ref 5 (Reported) Entered as Reported by: CLAUDIO OWEN RN on 09/12/18247 Last Action: Converted on 09/12/181039 by ZONIA RODRÍGUEZ MD Glucosamine Sulfate 2KCL (Glucosamine) 1,000 Mg Tablet, 1,000 MG PO DAILY for supplement , (Reported) Entered as Reported by: CLAUDIO OWEN RN on 09/12/18247 Last Action: Converted on 09/12/181039 by ZONIA RODRÍGUEZ MD [dilTIAZem HCL] 120 MG CAP.ER.24H, 120 MG PO DAILY for antiarrhytmic for 30 Days , #30 Ref 2 Prescribed by: ZONIA RODRÍGUEZ MD on 09/12/18 1505 Discontinued Medications Bisoprolol Fumarate (Bisoprolol Fumarate) 5 Mg Tablet, 0.5 TAB PO BID for rhythm control , #30 Ref 5 (Reported) Entered as Reported by: CLAUDIO OWEN RN on 09/12/18247 Last Action: Converted on 09/12/181039 by MD ANNE BOWLES HECTOR M MD Sep 12, 2018 15:13
[2018-09-13] MEDS ORDERED: NON FORMULARY ITEM (Glucosamine Sulfate 2KCL (Glucosamine) 1,000 MG) PO SCH (09:00)
== END 2018-09-12 17:15 | disposition home or self-care (01) | DRG 309 ==
LOC: ER 22:21 → 2 SOUTH 09-12 00:27
PROVIDERS: ADMIT Internal Medicine; ATTEND Internal Medicine
DX: I48.0 Paroxysmal atrial fibrillation (principal); Z68.42 Body mass index [BMI] 45.0-49.9, adult; E66.01 Morbid (severe) obesity due to excess calories; I48.92 Unspecified atrial flutter; M19.90 Unspecified osteoarthritis, unspecified site; E78.5 Hyperlipidemia, unspecified; G47.33 Obstructive sleep apnea (adult) (pediatric); Z77.120 Contact with and (suspected) exposure to mold (toxic); Z88.8 Allergy status to other drugs, medicaments and biological substances; Z79.899 Other long term (current) drug therapy
CPT/HCPCS: 36415; 71045; 80053; 80061; 81001; 81025; 83735; 83880; 84443; 84484; 85025; 87086; 93005; 93306; J3490; J7030

== ENCOUNTER 2018-09-22 08:15 | Emergency (ER) | payer OTHER ==
[~2018-09-22] VITALS: Ht 160 cm; Wt 97.5 kg
[~2018-09-22 08:15] MED LIST: ASPI81TA59 PO; BISO5TAB2 PO; CHOL10003 PO; FISH1CAP PO; FLEC100T PO; GLUC100018 PO; dilTIAZem HCL PO
[2018-09-22 08:30] VITALS: BP 127/70
--- NOTE | 2018-09-22 08:43 | PHYS DOC ---
Past Medical History Past Medical History: A-Fib, Kidney Stone Additional Past Medical Histor: A FLUTTER Past Surgical History: Additional Past Surgical Histo: C SECTION X 4, HEART ABLATION Alcohol Use: None Drug Use: None Adult General Chief Complaint Chief Complaint: LOWER BACK PAIN OR INJURY HPI HPI Patient is a 48 year old female with history of A. fib, kidney stones, who presents to the ED today complaining of 8 out of 10 throbbing constant left low back pain that began yesterday. Patient denies pain radiating to bilateral lower extremities, denies any loss of bowel bladder function. Denies anything specifically exacerbating or relieving the pain. Review of Systems Review of Systems Constitutional: Denies fever or chills [] Eyes: Denies change in visual acuity, redness, or eye pain [] HENT: Denies nasal congestion or sore throat [] Respiratory: Denies cough or shortness of breath [] Cardiovascular: No additional information not addressed in HPI [] GI: Denies abdominal pain, nausea, vomiting, bloody stools or diarrhea [] : Denies dysuria or hematuria [] Musculoskeletal: Reports left lower back pain Integument: Denies rash or skin lesions [] Neurologic: Denies headache, focal weakness or sensory changes [] All other systems were reviewed and found to be within normal limits, except as documented in this note. Allergies Allergies Allergies Coded Allergies Type Severity Reaction Last Updated Verified morphine Allergy Intermediate 09/11/18 Yes Physical Exam Physical Exam Constitutional: Well developed, well nourished, no acute distress, non-toxic appearance. [] HENT: Normocephalic, atraumatic, bilateral external ears normal, oropharynx moist, no oral exudates, nose normal. [] Eyes: PERRLA, EOMI, conjunctiva normal, no discharge. [] Neck: Normal range of motion, no tenderness, supple, no stridor. [] Cardiovascular:Heart rate regular rhythm, no murmur [] Lungs & Thorax: Bilateral breath sounds clear to auscultation [] Abdomen: Bowel sounds normal, soft, no tenderness, no masses, no pulsatile masses. [] Skin: Warm, dry, no erythema, no rash. [] Back: Diffuse paraspinal muscle tenderness to the left lumbar spine, no midline lumbar spine tenderness, no CVA tenderness. [] Extremities: No tenderness, no cyanosis, no clubbing, ROM intact, no edema. [] Neurologic: Alert and oriented X 3, normal motor function, normal sensory function, no focal deficits noted. [] Psychologic: Affect normal, judgement normal, mood normal. [] Current Patient Data Vital Signs Vital Signs Date Time Temp Pulse Resp B/P (MAP) Pulse Ox O2 Delivery O2 Flow Rate FiO2 09/22/18 08:30 97.8 64 12 127/70 (89) 99 Room Air 97.8 Lab Values Laboratory Tests Test 09/22/18 08:30 Urine Collection Type Unknown Urine Color Yellow Urine Clarity Clear Urine pH 6.5 Urine Specific [place] <=1.005 Urine Protein Negative mg/dL (NEG-TRACE) Urine Glucose (UA) Negative mg/dL (NEG) Urine Ketones (Stick) Negative mg/dL (NEG) Urine Blood Negative (NEG) Urine Nitrite Negative (NEG) Urine Bilirubin Negative (NEG) Urine Urobilinogen Dipstick 0.2 mg/dL (0.2 mg/dL) Urine Leukocyte Esterase Negative (NEG) Urine RBC 0 /HPF (0-2) Urine WBC 0 /HPF (0-4) Urine Squamous Epithelial Cells Few /LPF Urine Bacteria 0 /HPF (0-FEW) EKG EKG [] Radiology/Procedures Radiology/Procedures [] Course & Med Decision Making Course & Med Decision Making Pertinent Labs and Imaging studies reviewed. (See chart for details) This is a 48-year-old female patient presenting to the ED today complaining of left low back pain, no known injury. Patient has no cauda equina syndrome symptoms. Urine analysis is negative for infection, negative for any blood, CT of the abdomen and pelvic was done to rule out kidney stone, CT was negative for any kidney stone, noted for lung noddle, patient is a low risk, does not smoke but I recommended she follows up with her PCP for this. Patient will be discharged with Medrol Dosepak and Valium heat recommended to her back. Follow- up with her own primary care doctor in the next 7 days. Dragon Disclaimer Dragon Disclaimer This electronic medical record was generated, in whole or in part, using a voice recognition dictation system. Departure Departure Impression: Primary Impression: Low back pain Disposition: HOME, SELF-CARE Condition: STABLE Referrals: UNKNOWN PCP NAME (PCP) follow up in 1 week Patient Instructions: Low Back Sprain with [facility] Additional Instructions: You were evaluated in the emergency room for low back pain. We recommended you apply heat to your low back. Please take the prescribed medications as ordered. Please follow-up with the primary care doctor in the next 1 week. Scripts Diazepam (VALIUM) 5 Mg Tablet 5 MG PO TID, #20 TAB Prov: RENETTA WRIGHT REYNOLD 09/22/18 Methylprednisolone (MEDROL) 4 Mg Tab.ds.pk 1 PKG PO UD, #1 PKG Prov: RENETTA WRIGHT REYNOLD 09/22/18 Problem Qualifiers Primary Impression: Low back pain Chronicity: acute Back pain laterality: left Sciatica presence: without sciatica Qualified Codes: M54.5 - Low back pain RENETTA WRIGHT REYNOLD Sep 22, 2018 08:43
[2018-09-22 08:54] LABS: BILIRUBIN,URINE NEGATIVE (NEG); CLARITY,URINE CLEAR; COLOR,URINE YELLOW; NITRITE,URINE NEGATIVE (NEG); PH,URINE 6.5; PROTEIN,URINE NEGATIVE (NEG-TRACE); UROBILINOGEN,URINE 0.2 mg/dL (0.2 mg/dL)
[2018-09-22 09:08] LABS: BACTERIA,URINE 0 /HPF (0-FEW); RBC,URINE 0 /HPF (0-2); SQUAMOUS EPITHELIAL CELL,UR FEW /LPF; WBC,URINE 0 /HPF (0-4)
--- NOTE | 2018-09-22 09:24 | RAD ---
PQRS Compliance Statement: One or more of the following individualized dose reduction techniques were utilized for this examination: 1. Automated exposure control 2. Adjustment of the mA and/or kV according to patient size 3. Use of iterative reconstruction technique CT ABDOMEN PELVIS WO CONTRAST Clinical Indication: llq pain Comparison: None. Technique: Helical CT imaging of the abdomen and pelvis is performed without IV or oral contrast. Findings: Evaluation of solid organs and bowel is limited without oral and IV contrast, decreasing sensitivity for detection of pathology. 3 mm nodule left lower lobe, image 30. 3 mm nodule medial right middle lobe, image 38. Cardiac size normal. Fatty infiltration of the liver. Hepatomegaly versus normal variant Terrance lobe. Gallbladder, spleen, pancreas, adrenal glands, and abdominal aorta caliber are normal. There is no renal calculus. No perinephric stranding is seen. Tiny fat density lower pole right kidney may be a tiny angiomyolipoma. There is no right hydronephrosis. There is no left hydronephrosis. Stomach unremarkable. Small fat-containing umbilical hernia. Diastasis of rectus abdominis muscles. There is fatty atrophy of the rectus muscles. Tiny fat-containing infraumbilical hernia, image 173. No colon wall thickening is identified. No abdominal adenopathy or free fluid. The appendix is not seen, no secondary signs of appendicitis. No dilated small bowel. IUD in the uterus. Ovaries relatively symmetric. Urinary bladder is not well distended, limiting evaluation. No pelvic free fluid. Sclerosis along the sacroiliac joints. Correlate for sacroiliitis. IMPRESSION: 1. No acute abdominal or pelvic abnormality. 2. Fatty infiltration of the liver. 3. There are 2 3 mm noncalcified pulmonary nodules in the lung bases. If patient has risk factors for lung malignancy consider CT chest follow-up in 12 months. If patient does not have risk factors no further follow-up is required per Fleischner Society guidelines. Electronically signed by: Richie Ospina MD (09/22/2018 9:20 AM) [id number]
[2018-09-22] MEDS ORDERED: DIAZ5TAB PO (09:48)
[2018-09-22] MEDS ORDERED: METH4TAB2 PO (09:48)
[2018-09-22] MEDS ORDERED: methylPREDNISolone SOD SUCC PF 125 MG/2 ML VIAL. IM ONE (10:00)
== END 2018-09-22 10:17 | disposition home or self-care (01) ==
LOC: ER 08:15
DX: M54.5 Low back pain (principal); I48.91 Unspecified atrial fibrillation; Z87.442 Personal history of urinary calculi; Z88.5 Allergy status to narcotic agent
CPT/HCPCS: 74176; 81001; 96372; 99284; J2930

== ENCOUNTER 2020-03-24 12:36 | Inpatient (IN) | payer OTHER ==
[2020-03-24] VITALS (12 sets, daily range): BP systolic 129–186; BP diastolic 64–109
[~2020-03-24] VITALS: Ht 160 cm; Wt 117.4 kg
[~2020-03-24 12:36] MED LIST changes: -BISO5TAB2 PO; +BISO5TAB8 PO; +DIAZ5TAB PO; +METH4TAB2 PO
[2020-03-24] MEDS ORDERED: dilTIAZem IV PUSH 25 MG/5 ML VIAL IVP ONE (13:00)
[2020-03-24] MEDS ORDERED: DILTIAZEM HCL 125 MG in IV NORMAL SALINE 100ML 100 ML IV ONE (13:00)
[2020-03-24] MEDS ORDERED: IV NORMAL SALINE 1000ML BAG 1,000 ML IV ONE (13:00)
[2020-03-24 13:19] LABS: BASO % 0 % (0-3); EOS # 0.2 x10^3/uL (0.0-0.7); EOS % 3 % (0-3); HEMATOCRIT 43.8 % (36.0-47.0); LYMPH # 1.9 x10^3/uL (1.0-4.8); LYMPH % 30 % (24-48); MEAN CORPUSCULAR HEMOGLOBIN 30 pg (25-35); MEAN CORPUSCULAR HGB CONC 34 g/dL (31-37); MEAN CORPUSCULAR VOLUME 87 fL (79-100); MONO # 0.4 x10^3/uL (0.0-1.1); MONO % 7 % (0-9); NEUT # 3.9 x10^3/uL (1.8-7.7); NEUT % 60 % (31-73); PLATELET COUNT 138 x10^3/uL (140-400); RED BLOOD COUNT 5.06 x10^6/uL (3.50-5.40); RED CELL DISTRIBUTION WIDTH 13.2 % (11.5-14.5); WHITE BLOOD COUNT 6.5 x10^3/uL (4.0-11.0)
[2020-03-24 13:28] LABS: PROTHROMBIN TIME PATIENT 12.8 SEC (11.7-14.0)
[2020-03-24 13:30] LABS: BILIRUBIN,URINE NEGATIVE (NEG); CLARITY,URINE CLEAR; COLOR,URINE YELLOW; NITRITE,URINE NEGATIVE (NEG); PROTEIN,URINE NEGATIVE (NEG-TRACE); UROBILINOGEN,URINE 0.2 mg/dL (0.2 mg/dL)
--- NOTE | 2020-03-24 13:37 | RAD ---
EXAM: PORTABLE CHEST 1V 03/24/2020 12:45 PM CLINICAL INDICATION: Palpitations COMPARISON: None available TECHNIQUE: AP upright view of the chest FINDINGS: The heart and mediastinum are normal. Lungs are well-expanded. No consolidation, pleural effusion, or pneumothorax. Pulmonary vascularity is normal. The thoracic skeleton is intact. IMPRESSION: No acute cardiopulmonary abnormality. Electronically signed by: Valeria Gonzalez MD (03/24/2020 1:34 PM) [id number]
[2020-03-24 13:46] LABS: BACTERIA,URINE 0 /HPF (0-FEW); RBC,URINE 0 /HPF (0-2); SQUAMOUS EPITHELIAL CELL,UR FEW /LPF; WBC,URINE 0 /HPF (0-4)
--- NOTE | 2020-03-24 13:46 | PHYS DOC ---
Past Medical History Past Medical History: A-Fib, Kidney Stone Additional Past Medical Histor: A FLUTTER (CAROL LAUGHLIN SOYBEAN GROWER) Past Surgical History: Additional Past Surgical Histo: C SECTION X 4, HEART ABLATION (CAROL LAUGHLIN SOYBEAN GROWER) Smoking Status: Never Smoker Alcohol Use: None Drug Use: None (CAROL LAUGHLIN SOYBEAN GROWER) General Adult EDM: Chief Complaint: Palpitations HPI: HPI: Patient is a 49 year old female who presents with presents today with palpitations and a heart rate into the 130s. She states that she took 325 mg of aspirin before coming. She does have known A. fib and she takes diltiazem 120 mg and flecainide 100 mg. Patient states she is having shortness of breath and chest tightness with this. She stated that she did become lightheaded and it is intermittent. Patient denies nausea, vomiting, focal weakness, headache, vision changes, numbness or tingling, abdominal pain, syncope. She does have a history of A. fib, sleep apnea, kidney stone, a flutter, heart ablation, 4 C-sections. She rates her discomfort at 8 out of 10. (CAROL LAUGHLIN SOYBEAN GROWER) Review of Systems: Review of Systems: Constitutional: Denies fever or chills. [] Eyes: Denies change in visual acuity. [] HENT: Denies nasal congestion or sore throat. [] Respiratory: Denies cough. +shortness of breath. [] Cardiovascular: + chest pain or +edema. [] GI: Denies abdominal pain, nausea, vomiting, bloody stools or diarrhea. [] : Denies dysuria. [] Musculoskeletal: Denies back pain or joint pain. [] Integument: Denies rash. [] Neurologic: Denies headache, focal weakness or sensory changes. Dizziness[] Endocrine: Denies polyuria or polydipsia. [] Lymphatic: Denies swollen glands. [] Psychiatric: Denies depression or anxiety. [] (CAROL LAUGHLIN SOYBEAN GROWER) Heart Score: HEART Score for Chest Pain: HEART Score for Chest Pain Response (Comments) Value History Slighlty/Non-Suspicious 0 ECG Nonspecific Repolarizatio 1 Age >45 - < 65 1 Risk Factors 1 or 2 Risk Factors 1 Troponin < Normal Limit 0 Total 3 Risk Factors: Risk Factors: DM, Current or recent (<one month) smoker, HTN, HLP, family history of CAD, obesity. Risk Scores: Score 0 - 3: 2.5% MACE over next 6 weeks - Discharge Home Score 4 - 6: 20.3% MACE over next 6 weeks - Admit for Clinical Observation Score 7 - 10: 72.7% MACE over next 6 weeks - Early Invasive Strategies (CAROL LAUGHLIN APRN) Current Medications: Current Medications Medications (Trade) Dose Ordered Sig/Fer Start Time Stop Time Status Last Admin Dose Admin Diltiazem HCl (Cardizem Iv Push) 15 mg 1X ONCE 03/24/20 13:00 03/24/20 13:01 DC 03/24/20 13:00 15 MG Diltiazem HCl 125 mg/Sodium Chloride 125 ml @ 10 mls/hr 1X ONCE 03/24/20 13:00 03/25/20 01:29 03/24/20 13:15 10 MLS/HR Sodium Chloride 1,000 ml @ 1,000 mls/hr 1X ONCE 03/24/20 13:00 03/24/20 13:59 03/24/20 13:15 1,000 MLS/HR (CAROL LAUGHLIN SOYBEAN GROWER) Allergies: Allergies: Allergies Coded Allergies Type Severity Reaction Last Updated Verified morphine Allergy Intermediate 09/11/18 Yes (CAROL LAUGHLIN APRN) Physical Exam: PE: Constitutional: Well developed, well nourished, no acute distress, non-toxic appearance. [] HENT: Normocephalic, atraumatic, bilateral external ears normal, oropharynx moist, no oral exudates, nose normal. [] Eyes: PERRLA, EOMI, conjunctiva normal, no discharge. [] Neck: Normal range of motion, no tenderness, supple, no stridor. [] Cardiovascular:Heart rate irregular rhythm, no murmur [] Lungs & Thorax: Bilateral breath sounds clear to auscultation [] Abdomen: Bowel sounds normal, soft, no tenderness, no masses, no pulsatile masses. [] Skin: Warm, dry, no erythema, no rash. [] Back: No tenderness, no CVA tenderness. [] Extremities: No tenderness, no cyanosis, no clubbing, ROM intact, Bilateral lower 1+ edema. [] Neurologic: Alert and oriented X 3, normal motor function, normal sensory function, no focal deficits noted. [] Psychologic: Affect normal, judgement normal, mood normal. [] (CAROL LAUGHLIN APRN) Current Patient Data: Labs: Laboratory Tests Test 03/24/20 13:05 White Blood Count 6.5 x10^3/uL (4.0-11.0) Red Blood Count 5.06 x10^6/uL (3.50-5.40) Hemoglobin 15.0 g/dL (12.0-15.5) Hematocrit 43.8 % (36.0-47.0) Mean Corpuscular Volume 87 fL (79-100) Mean Corpuscular Hemoglobin 30 pg (25-35) Mean Corpuscular Hemoglobin Concent 34 g/dL (31-37) Red Cell Distribution Width 13.2 % (11.5-14.5) Platelet Count 138 x10^3/uL (140-400) L Neutrophils (%) (Auto) 60 % (31-73) Lymphocytes (%) (Auto) 30 % (24-48) Monocytes (%) (Auto) 7 % (0-9) Eosinophils (%) (Auto) 3 % (0-3) Basophils (%) (Auto) 0 % (0-3) Neutrophils # (Auto) 3.9 x10^3/uL (1.8-7.7) Lymphocytes # (Auto) 1.9 x10^3/uL (1.0-4.8) Monocytes # (Auto) 0.4 x10^3/uL (0.0-1.1) Eosinophils # (Auto) 0.2 x10^3/uL (0.0-0.7) Basophils # (Auto) 0.0 x10^3/uL (0.0-0.2) Prothrombin Time 12.8 SEC (11.7-14.0) Prothrombin Time INR 1.0 (0.8-1.1) Laboratory Tests 03/24/20 13:05 Vital Signs: Vital Signs Date Time Temp Pulse Resp B/P (MAP) Pulse Ox O2 Delivery O2 Flow Rate FiO2 03/24/20 13:00 123 144/94 (CAROL LAUGHLIN APRN) EKG: EK read by Dr Sotelo as Irregular Rythm and no STEMI[] (CAROL LAUGHLIN APRN) EKG: EKG consistent with atrial fibrillation with rapid ventricular response. Ventricular rate of 119 bpm. [place] normal. Flipped T waves noted in lead III. No acute ST segment elevation or ischemic signs appreciated. (MEGA SOTELO DO) Radiology/Procedures: Radiology/Procedures: [] Impression: [facility] [address] [place] [address] IMAGING REPORT Signed PATIENT: PRASAD AMAYA ACCOUNT: [id number] : 1970 LOCATION: ER AGE: 49 SEX: F EXAM STATUS: PRE ER ORD. PHYSICIAN: CAROL LAUGHLIN APRN REASON: palpitations. PROCEDURE: PORTABLE CHEST 1V EXAM: PORTABLE CHEST 1V 03/24/2020 12:45 PM CLINICAL INDICATION: Palpitations COMPARISON: None available TECHNIQUE: AP upright view of the chest FINDINGS: The heart and mediastinum are normal. Lungs are well-expanded. No consolidation, pleural effusion, or pneumothorax. Pulmonary vascularity is normal. The thoracic skeleton is intact. IMPRESSION: No acute cardiopulmonary abnormality. Electronically signed by: Valeria Gonzalez MD (03/24/2020 1:34 PM) [id number] DICTATED and SIGNED BY: VALERIA GONZALEZ MD DATE: 03/24/20 1334 (CAROL LAUGHLIN APRN) Course & Med Decision Making: Course & Med Decision Making Pertinent Labs and Imaging studies reviewed. (See chart for details) See HPI. Patient is given Cardizem 15 mg bolus and her Cardizem drip rate was started at 10. Patient to be admitted for rate control with Cardizem drip. Lungs are clear to auscultation in all lobes. 1+ bilateral lower extremity edema. Speaks in full clear sentences. Alert and oriented x4. Skin pink warm and dry. Ambulatory with a steady gait. Dr. Sotelo has gone in and examined the patient also. EKG shows an irregular rhythm but no STEMI. Blood work is unremarkable. Vital signs remained stable. After Medication started her heart rate is down to the 70's. [] (CAROL LAUGHLIN APRN) Dragon Disclaimer: Dragon Disclaimer: This electronic medical record was generated, in whole or in part, using a voice recognition dictation system. (CAROL LAUGHLIN APRN) Departure Departure Impression: Primary Impression: Afib Qualified Codes: I48.91 - Unspecified atrial fibrillation Disposition: ADMITTED INPATIENT Admitting Physician: TROY (CAROL LAUGHLIN APRN) Condition: STABLE Referrals: UNKNOWN PCP NAME (PCP) Justicifation of Admission Dx: Justifications for Admission: Justification of Admission Dx: Yes (uncontrolled afib) (CAROL LAUGHLIN APRN) Attending Signature Attending Signature I have reviewed the non-physician practitioner's documentation, personally taken the patient's history, performed an exam and agree with the physical findings, clinical impression, and management plan. In brief patient is a 49-year-old female with a history of chronic atrial fibrillation who presents with chief complaint of irregular heartbeat. She notes that she takes diltiazem orally nightly and flecainide twice daily. She states he has not had any recent changes to her medications. Denies chest pain does note some mild shortness of breath. States that she has been fasting over the weekend due to confucianism purposes. States she has been hospitalized multiple times for rate controlling medications. Initial EKG consistent with atrial fibrillation with rapid ventricular response. Patient was bolused 15 mg of Cardizem and started on a rate of 10mg/h of Cardizem. This did improve her rate. Her blood pressure remained stable. Her mentation remained stable. Patient will require hospitalization for further rate control. (MEGA SOTELO DO) Attending Signature I have participated in the care of this patient and I have reviewed and agree with all pertinent clinical information above including history, exam, and recommendations. (CAROL LAUGHLIN APRN) CAROL LAUGHLIN APRN Mar 24, 2020 13:46 MEGA SOTELO DO Mar 24, 2020 13:48
[2020-03-24 14:07] LABS: CALCIUM 8.7 mg/dL (8.5-10.1); CREATININE 0.7 mg/dL (0.6-1.0); GFR 88.2; POTASSIUM 3.8 mmol/L (3.5-5.1)
[2020-03-24 14:12] LABS: ALBUMIN 3.7 g/dL (3.4-5.0); ALBUMIN/GLOBULIN RATIO 0.9 (1.0-1.7); TOTAL BILIRUBIN 0.7 mg/dL (0.2-1.0); TOTAL PROTEIN 7.6 g/dL (6.4-8.2)
[2020-03-24] MEDS ORDERED: ONDANSETRON PF 4 MG/2 ML VIAL. IV PRN ×2 (14:15→16:30)
[2020-03-24] MEDS ORDERED: ACETAMINOPHEN 325 MG TABLET. PO PRN (16:30)
[2020-03-24] MEDS ORDERED: cloNIDine HCL 0.1 MG TABLET PO PRN (16:30)
[2020-03-24] MEDS ORDERED: guaiFENesin ORAL 200 MG/10 ML LIQUID. PO PRN (16:30)
[2020-03-24] MEDS ORDERED: ZOLPIDEM 5 MG TABLET. PO PRN (16:30)
[2020-03-24] MEDS ORDERED: ALBUTEROL SULFATE 2.5 MG/3 ML NEBU. NEB PRN (16:30)
[2020-03-24] MEDS ORDERED: LORazepam 0.5 MG TABLET PO PRN (16:30)
[2020-03-24] MEDS ORDERED: DOCUSATE SODIUM 100 MG CAPSULE. PO PRN (16:30)
--- NOTE | 2020-03-24 16:44 | PDOC1 ---
History and Physical Date of Admission Date of Admission 03/24/2020 Identification/Chief Complaint Chief Complaint palpitations Source Source: Chart review, Patient History of Present Illness History of Present Illness Patient is a 49 year old female with past medical history of atrial fibrillation for more or less 14 years who was in her usual state of health until the day of her admission when she started noticing palpitations. Patient refers having associated shortness of breath no chest discomfort no chest tightness no angina type of symptoms were reported. Patient currently takes flecainide and diltiazem as part of her treatment plan for rate control. She has had ablations in the past and unfortunately she continues to suffer from atrial fibrillation. Patient denies any recent changes to her medications no increase in dosing nor decreasing. The patient also denies [id number] medications no herbal supplements and no energy drink intake. Patient was evaluated in the emergency department after being found in atrial fibrillation with rapid ventricular response which has been controlled now with a bolus of 50 mg of Cardizem and a Cardizem drip. No inciting factors were noted of noticed that is helping with a history taking and relates that the patient is currently undergoing a lot of stress in her life. No recent infections no contact with COVID-19 infected persons no headache no cold-like symptoms no dysphagia no odynophagia no nausea vomiting diarrhea no urinary symptoms were reported no other complaints voiced during my interview. Patient seems to be teary-eyed when I told her that she was staying in the hospital. Reassurance has been provided all of her concerns were addressed to the best of my abilities Past Medical History Cardiovascular: AFIB Past Surgical History Past Surgical History: , Other Family History Family History: No Significant, Other Social History Smoke: No ALCOHOL: none Drugs: None Current Problem List Problem List Problems Medical Problems: (1) Afib Status: Acute Current Medications Current Medications Current Medications Medications (Trade) Dose Ordered Sig/Fer Start Time Stop Time Status Last Admin Dose Admin Diltiazem HCl (Cardizem Iv Push) 15 mg 1X ONCE 03/24/20 13:00 03/24/20 13:01 DC 03/24/20 13:00 15 MG Diltiazem HCl 125 mg/Sodium Chloride 125 ml @ 10 mls/hr 1X ONCE 03/24/20 13:00 03/25/20 01:29 03/24/20 13:15 10 MLS/HR Ondansetron HCl (Zofran) 4 mg PRN Q8HRS PRN 03/24/20 14:15 03/25/20 14:14 Sodium Chloride 1,000 ml @ 1,000 mls/hr 1X ONCE 03/24/20 13:00 03/24/20 13:59 DC 03/24/20 13:15 1,000 MLS/HR Allergies Allergies Allergies Coded Allergies Type Severity Reaction Last Updated Verified morphine Allergy Intermediate 09/11/18 Yes ROS Review of System CONSTITUTIONAL: No fever or chills EYES: No recent changes SKIN: No rash or itching CARDIOVASCULAR: No chest pain, syncope, pertinent for palpitations, no edema RESPIRATORY: Positive for SOB no cough GASTROINTESTINAL: No nausea, vomiting or abdominal pain NEUROLOGICAL: No headaches or weakness ENDOCRINE: No cold or heat intolerance GENITOURINARY: No urgency or frequency of urination MUSCULOSKELETAL: No back pain or joint pain LYMPHATICS: No enlarged lymph nodes PSYCHIATRIC: No anxiety or depression Physical Exam Physical Exam Gen.: well-developed well-nourished in no apparent distress Head: Normal shape atraumatic Eyes: Pupils equal reactive to light and accommodation, normal conjunctivae and lids Ears: Normal shape Nose: Normal shape no trauma Mouth: No exudates of the back of throat no thrush no lesions Neck: Supple no JVD no carotid bruit or lymphadenopathy no thyromegaly Chest: Lungs clear to auscultation with good inspiratory effort no crackles rales or rhonchi Cardiovascular: S1-S2 irrregular rhythm no murmurs gallops or rubs Abdomen: Bowel sounds present soft nontender no hepatosplenomegaly appreciated sign Extremities: No clubbing no cyanosis no edema peripheral pulses palpated bilaterally Neurological: Alert awake oriented in person time place and situation, cranial nerves II through XII intact, no motor or sensory deficits appreciated Psych: Appropriate mood, cooperative Vitals Vitals Vital Signs Date Time Temp Pulse Resp B/P (MAP) Pulse Ox O2 Delivery O2 Flow Rate FiO2 03/24/20 14:48 73 18 139/80 (99) 96 Room Air 03/24/20 13:00 98.8 98.8 Labs Labs Laboratory Tests Test 03/24/20 13:05 03/24/20 13:20 03/24/20 13:35 White Blood Count 6.5 x10^3/uL (4.0-11.0) Red Blood Count 5.06 x10^6/uL (3.50-5.40) Hemoglobin 15.0 g/dL (12.0-15.5) Hematocrit 43.8 % (36.0-47.0) Mean Corpuscular Volume 87 fL (79-100) Mean Corpuscular Hemoglobin 30 pg (25-35) Mean Corpuscular Hemoglobin Concent 34 g/dL (31-37) Red Cell Distribution Width 13.2 % (11.5-14.5) Platelet Count 138 x10^3/uL (140-400) Neutrophils (%) (Auto) 60 % (31-73) Lymphocytes (%) (Auto) 30 % (24-48) Monocytes (%) (Auto) 7 % (0-9) Eosinophils (%) (Auto) 3 % (0-3) Basophils (%) (Auto) 0 % (0-3) Neutrophils # (Auto) 3.9 x10^3/uL (1.8-7.7) Lymphocytes # (Auto) 1.9 x10^3/uL (1.0-4.8) Monocytes # (Auto) 0.4 x10^3/uL (0.0-1.1) Eosinophils # (Auto) 0.2 x10^3/uL (0.0-0.7) Basophils # (Auto) 0.0 x10^3/uL (0.0-0.2) Prothrombin Time 12.8 SEC (11.7-14.0) Prothromb Time International Ratio 1.0 (0.8-1.1) Urine Collection Type Unknown Urine Color Yellow Urine Clarity Clear Urine pH 8.0 (<5.0-8.0) Urine Specific [place] <=1.005 (1.000-1.030) Urine Protein Negative mg/dL (NEG-TRACE) Urine Glucose (UA) Negative mg/dL (NEG) Urine Ketones (Stick) Negative mg/dL (NEG) Urine Blood Negative (NEG) Urine Nitrite Negative (NEG) Urine Bilirubin Negative (NEG) Urine Urobilinogen Dipstick 0.2 mg/dL (0.2 mg/dL) Urine Leukocyte Esterase Negative (NEG) Urine RBC 0 /HPF (0-2) Urine WBC 0 /HPF (0-4) Urine Squamous Epithelial Cells Few /LPF Urine Bacteria 0 /HPF (0-FEW) Sodium Level 141 mmol/L (136-145) Potassium Level 3.8 mmol/L (3.5-5.1) Chloride Level 107 mmol/L (98-107) Carbon Dioxide Level 25 mmol/L (21-32) Anion Gap 9 (6-14) Blood Urea Nitrogen 9 mg/dL (7-20) Creatinine 0.7 mg/dL (0.6-1.0) Estimated GFR (Cockcroft-Gault) 88.2 BUN/Creatinine Ratio 13 (6-20) Glucose Level 122 mg/dL (70-99) Calcium Level 8.7 mg/dL (8.5-10.1) Magnesium Level 2.4 mg/dL (1.8-2.4) Total Bilirubin 0.7 mg/dL (0.2-1.0) Aspartate Amino Transf (AST/SGOT) 29 U/L (15-37) Alanine Aminotransferase (ALT/SGPT) 54 U/L (14-59) Alkaline Phosphatase 93 U/L (46-116) Troponin I Quantitative < 0.017 ng/mL (0.000-0.055) NM-Ojt-A-Type Natriuretic Peptide 95 pg/mL (0-124) Total Protein 7.6 g/dL (6.4-8.2) Albumin 3.7 g/dL (3.4-5.0) Albumin/Globulin Ratio 0.9 (1.0-1.7) Laboratory Tests Test 03/24/20 13:05 03/24/20 13:20 03/24/20 13:35 White Blood Count 6.5 x10^3/uL (4.0-11.0) Red Blood Count 5.06 x10^6/uL (3.50-5.40) Hemoglobin 15.0 g/dL (12.0-15.5) Hematocrit 43.8 % (36.0-47.0) Mean Corpuscular Volume 87 fL (79-100) Mean Corpuscular Hemoglobin 30 pg (25-35) Mean Corpuscular Hemoglobin Concent 34 g/dL (31-37) Red Cell Distribution Width 13.2 % (11.5-14.5) Platelet Count 138 x10^3/uL (140-400) Neutrophils (%) (Auto) 60 % (31-73) Lymphocytes (%) (Auto) 30 % (24-48) Monocytes (%) (Auto) 7 % (0-9) Eosinophils (%) (Auto) 3 % (0-3) Basophils (%) (Auto) 0 % (0-3) Neutrophils # (Auto) 3.9 x10^3/uL (1.8-7.7) Lymphocytes # (Auto) 1.9 x10^3/uL (1.0-4.8) Monocytes # (Auto) 0.4 x10^3/uL (0.0-1.1) Eosinophils # (Auto) 0.2 x10^3/uL (0.0-0.7) Basophils # (Auto) 0.0 x10^3/uL (0.0-0.2) Prothrombin Time 12.8 SEC (11.7-14.0) Prothromb Time International Ratio 1.0 (0.8-1.1) Urine Collection Type Unknown Urine Color Yellow Urine Clarity Clear Urine pH 8.0 (<5.0-8.0) Urine Specific [place] <=1.005 (1.000-1.030) Urine Protein Negative mg/dL (NEG-TRACE) Urine Glucose (UA) Negative mg/dL (NEG) Urine Ketones (Stick) Negative mg/dL (NEG) Urine Blood Negative (NEG) Urine Nitrite Negative (NEG) Urine Bilirubin Negative (NEG) Urine Urobilinogen Dipstick 0.2 mg/dL (0.2 mg/dL) Urine Leukocyte Esterase Negative (NEG) Urine RBC 0 /HPF (0-2) Urine WBC 0 /HPF (0-4) Urine Squamous Epithelial Cells Few /LPF Urine Bacteria 0 /HPF (0-FEW) Sodium Level 141 mmol/L (136-145) Potassium Level 3.8 mmol/L (3.5-5.1) Chloride Level 107 mmol/L (98-107) Carbon Dioxide Level 25 mmol/L (21-32) Anion Gap 9 (6-14) Blood Urea Nitrogen 9 mg/dL (7-20) Creatinine 0.7 mg/dL (0.6-1.0) Estimated GFR (Cockcroft-Gault) 88.2 BUN/Creatinine Ratio 13 (6-20) Glucose Level 122 mg/dL (70-99) Calcium Level 8.7 mg/dL (8.5-10.1) Magnesium Level 2.4 mg/dL (1.8-2.4) Total Bilirubin 0.7 mg/dL (0.2-1.0) Aspartate Amino Transf (AST/SGOT) 29 U/L (15-37) Alanine Aminotransferase (ALT/SGPT) 54 U/L (14-59) Alkaline Phosphatase 93 U/L (46-116) Troponin I Quantitative < 0.017 ng/mL (0.000-0.055) [place]-Cvl-P-Type Natriuretic Peptide 95 pg/mL (0-124) Total Protein 7.6 g/dL (6.4-8.2) Albumin 3.7 g/dL (3.4-5.0) Albumin/Globulin Ratio 0.9 (1.0-1.7) VTE Prophylaxis Ordered VTE Prophylaxis Devices: Yes VTE Pharmacological Prophylaxi: Yes Assessment/Plan Assessment/Plan Atrial fibrillation with rapid ventricular response History of heart ablations Stress in life Plan Trend troponin Echocardiogram Continue Cardizem drip Transition to oral once rate is controlled Further recommendations will be based on clinical Hopefully discharge in the next 24 to 48 hours DVT prophylaxis with Lovenox Justifications for Admission Other Justification ZONIA RODRÍGUEZ MD Mar 24, 2020 16:44
[2020-03-24] MEDS ORDERED: FLU VACC QS 2020-21(6MOS+)/PF 0.5 ML SYRINGE. VAX IM ONE (19:00)
[2020-03-24] MEDS: diazePAM 5 MG TABLET PO SCH (21:56)
[2020-03-24] MEDS: ENOXAPARIN 40 MG/0.4 ML SYRINGE. SQ SCH (21:57)
[2020-03-24] MEDS: FLECAINIDE ACETATE 50 MG TABLET. PO SCH (21:57)
[2020-03-25] VITALS (10 sets, daily range): BP systolic 109–153; BP diastolic 65–92
[2020-03-25] MEDS ORDERED: DILTIAZEM HCL 125 MG in IV NORMAL SALINE 100ML 100 ML IV PRN
[2020-03-25] MEDS: FLECAINIDE ACETATE 50 MG TABLET. PO SCH (08:28)
[2020-03-25] MEDS: ENOXAPARIN 40 MG/0.4 ML SYRINGE. SQ SCH (08:30)
[2020-03-25] MEDS: diazePAM 5 MG TABLET PO SCH ×2 (08:31→13:39)
[2020-03-25] MEDS ORDERED: NON FORMULARY ITEM (Glucosamine Sulfate 2KCL (Glucosamine) 1,000 MG) PO SCH (09:00)
[2020-03-25] MEDS ORDERED: CHOLECALCIFEROL (VITAMIN D3) 1,000 UNIT TABLET PO SCH (09:00)
[2020-03-25] MEDS ORDERED: OMEGA-3 FATTY ACIDS/FISH OIL 1,000 MG CAPSULE. PO SCH (09:00)
[2020-03-25] MEDS ORDERED: ASPIRIN CHEWABLE 81 MG TABLET. PO SCH (09:00)
--- NOTE | 2020-03-25 10:35 | EKG ---
[facility] [address] [place] [address] Test Date: 2020-03-24 Test Time: 12:49:36 Pat Name: PRASAD AMAYA Department: Room: 211 1 Gender: F Associate Editor: : 1970 Requested By: CAROL LAUGHLIN Order Number: [id number] Reading MD: Dariusz Dow MD Measurements Intervals [place] Rate: 119 P: OK: QRS: 14 QRSD: 88 T: 15 QT: 326 QTc: 459 Interpretive Statements ATRIAL FIBRILLATION WITH RVR Electronically Signed On 03-25-2020 11:27:47 CDT by Dariusz Dow MD
--- NOTE | 2020-03-25 11:42 | PDOC2 ---
CHARISSA CHOI APRN 03/25/20 1142: CARDIAC CONSULT DATE OF CONSULT Date of Consult DATE: 03/25/20 TIME: 11:26 REASON FOR CONSULT Reason for Consult: AFIB REFERRING PHYSICIAN Referring Physician: Elli Mullins APRN SOURCE Source: Chart review, Patient HISTORY OF PRESENT ILLNESS HISTORY OF PRESENT ILLNESS This is 49 yo female, with a history of AFIB s/p prior AFIB/flutter ablation in 2002, who presented secondary to palpitations and tachycardia. Was associated with shortness of breath and tightness in her chest. Was noted in AFIB with RVR upon arrival. Cardizem gtt was initiated. Patient converted to SR overnight and has been maintaining. Is on flecainide and cardizem at home for rate/rhythm control. PAST MEDICAL HISTORY Past Medical History Cardiovascular: AFIB, HLP Musculoskeletal: Osteoarthritis, Other (morbid obesity) PAST SURGICAL HISTORY Past Surgical History cardiac ablation FAMILY HISTORY Family History Other (arrhythmia (mother); daughter has WPW) SOCIAL HISTORY Social History Smoke: No ALCOHOL: none Drugs: None Lives: with Family (spouse) CURRENT MEDICATIONS CURRENT MEDICATIONS Current Medications Medications (Trade) Dose Ordered Sig/Fer Route PRN Reason Start Time Stop Time Status Last Admin Dose Admin Diltiazem HCl 125 mg/Sodium Chloride 125 ml @ 10 mls/hr 1X ONCE IV 03/24/20 13:00 03/25/20 01:29 DC 03/24/20 13:15 Diltiazem HCl (Cardizem Iv Push) 15 mg 1X ONCE IVP 03/24/20 13:00 03/24/20 13:01 DC 03/24/20 13:00 Sodium Chloride 1,000 ml @ 1,000 mls/hr 1X ONCE IV 03/24/20 13:00 03/24/20 13:59 DC 03/24/20 13:15 Enoxaparin Sodium (Lovenox 40mg Syringe) 40 mg Q12HR SQ 03/24/20 21:00 03/25/20 08:30 Aspirin (Aspirin Chewable) 81 mg DAILY PO 03/25/20 09:00 03/25/20 08:29 Vitamin D (Vitamin D3) 2,000 unit DAILY PO 03/25/20 09:00 03/25/20 08:29 Diazepam (Valium) 5 mg TID PO 03/24/20 21:00 03/24/20 21:56 Fish Oil (Fish Oil) 1,000 mg DAILY PO 03/25/20 09:00 03/25/20 08:29 Flecainide Acetate (Tambocor) 100 mg Q12HR PO 03/24/20 21:00 03/25/20 08:28 Diltiazem HCl (Cardizem 24hr Cd) 120 mg DAILY PO 03/24/20 17:00 03/25/20 08:29 Influenza Virus Vaccine Quadrival (Fluzone Quad Syringe) 0.5 ml ONCE ONCE VAX IM 03/24/20 19:00 03/24/20 19:01 DC 03/25/20 09:17 Diltiazem HCl 125 mg/Sodium Chloride 125 ml @ 5 mls/hr CONT PRN IV SEE I/O RECORD 03/25/20 00:00 03/25/20 00:18 ALLERGIES ALLERGIES: Coded Allergies: morphine (Verified Allergy, Intermediate, 09/11/18) ROS Review of System 14 point ROS conducted with pertinent positives noted above in HPI VITALS/I&O VITALS/I&O: Vital Signs Date Time Temp Pulse Resp B/P (MAP) Pulse Ox O2 Delivery O2 Flow Rate FiO2 03/25/20 10:35 97.8 72 14 153/92 (112) 99 Room Air 97.8 I & O 03/24/20 03/24/20 03/25/20 15:00 23:00 07:00 Intake Total 2100 ml 125 ml Balance 2100 ml 125 ml LABS Lab: Laboratory Tests Test 03/24/20 13:05 03/24/20 13:20 03/24/20 13:35 03/24/20 16:50 White Blood Count 6.5 x10^3/uL (4.0-11.0) Red Blood Count 5.06 x10^6/uL (3.50-5.40) Hemoglobin 15.0 g/dL (12.0-15.5) Hematocrit 43.8 % (36.0-47.0) Mean Corpuscular Volume 87 fL (79-100) Mean Corpuscular Hemoglobin 30 pg (25-35) Mean Corpuscular Hemoglobin Concent 34 g/dL (31-37) Red Cell Distribution Width 13.2 % (11.5-14.5) Platelet Count 138 x10^3/uL (140-400) L Neutrophils (%) (Auto) 60 % (31-73) Lymphocytes (%) (Auto) 30 % (24-48) Monocytes (%) (Auto) 7 % (0-9) Eosinophils (%) (Auto) 3 % (0-3) Basophils (%) (Auto) 0 % (0-3) Neutrophils # (Auto) 3.9 x10^3/uL (1.8-7.7) Lymphocytes # (Auto) 1.9 x10^3/uL (1.0-4.8) Monocytes # (Auto) 0.4 x10^3/uL (0.0-1.1) Eosinophils # (Auto) 0.2 x10^3/uL (0.0-0.7) Basophils # (Auto) 0.0 x10^3/uL (0.0-0.2) Prothrombin Time 12.8 SEC (11.7-14.0) Prothrombin Time INR 1.0 (0.8-1.1) Urine Collection Type Unknown Urine Color Yellow Urine Clarity Clear Urine pH 8.0 (<5.0-8.0) Urine Specific [place] <=1.005 (1.000-1.030) Urine Protein Negative mg/dL (NEG-TRACE) Urine Glucose (UA) Negative mg/dL (NEG) Urine Ketones (Stick) Negative mg/dL (NEG) Urine Blood Negative (NEG) Urine Nitrite Negative (NEG) Urine Bilirubin Negative (NEG) Urine Urobilinogen Dipstick 0.2 mg/dL (0.2 mg/dL) Urine Leukocyte Esterase Negative (NEG) Urine RBC 0 /HPF (0-2) Urine WBC 0 /HPF (0-4) Urine Squamous Epithelial Cells Few /LPF Urine Bacteria 0 /HPF (0-FEW) Sodium Level 141 mmol/L (136-145) Potassium Level 3.8 mmol/L (3.5-5.1) Chloride Level 107 mmol/L (98-107) Carbon Dioxide Level 25 mmol/L (21-32) Anion Gap 9 (6-14) Blood Urea Nitrogen 9 mg/dL (7-20) Creatinine 0.7 mg/dL (0.6-1.0) Estimated GFR (Cockcroft-Gault) 88.2 BUN/Creatinine Ratio 13 (6-20) Glucose Level 122 mg/dL (70-99) H Calcium Level 8.7 mg/dL (8.5-10.1) Magnesium Level 2.4 mg/dL (1.8-2.4) Total Bilirubin 0.7 mg/dL (0.2-1.0) Aspartate Amino Transferase (AST) 29 U/L (15-37) Alanine Aminotransferase (ALT) 54 U/L (14-59) Alkaline Phosphatase 93 U/L (46-116) Troponin I Quantitative < 0.017 ng/mL (0.000-0.055) < 0.017 ng/mL (0.000-0.055) ZQ-Ulp-Y-Type Natriuretic Peptide 95 pg/mL (0-124) Total Protein 7.6 g/dL (6.4-8.2) Albumin 3.7 g/dL (3.4-5.0) Albumin/Globulin Ratio 0.9 (1.0-1.7) L Test 03/24/20 20:30 Troponin I Quantitative < 0.017 ng/mL (0.000-0.055) Laboratory Tests 03/24/20 13:05 Laboratory Tests 03/24/20 13:35 ECHOCARDIOGRAM ECHOCARDIOGRAM <Conclusion> The left ventricular systolic function is normal and the ejection fraction is within normal range. The Ejection Fraction is >55%. There is normal LV segmental wall motion. DATE: 09/12/18 1104 STRESS TEST STRESS TEST 05/11/18 - Procedure: D-SPECT MULTI GATED THALLIUM REGADENOSON MPI STRESS TEST SUMMARY/OPINION: This study is normal with no evidence of significant myocardial ischemia. Left ventricular systolic function is normal. There are no high risk prognostic indicators present. The ECG portion of the study is negative for ischemia. There are no prior studies available for comparison. In aggregate the current study is low risk in regards to predicted annual cardiovascular mortality rate ASSESSMENT/PLAN ASSESSMENT/PLAN 1. PAFIB with RVR; converted back to SR overnight and has been maintaining. H/o ablation 2002. On flecainide for rhythm maintenance and Cardizem for rate control. Follows with Dr. Escoto with [facility]. MPI 2017 without evidence of ischemia/infarct. Echo 09/13 with preserved LV systolic function as noted above. 2. Dyslipidemia 3, CRISTI: with CPAP use at home 4. Morbid obesity Recommendations Continue flecainide, Cardizem for rhythm/rate control [id number] score 1; will continue ASA therapy Outpatient event monitor to assess AFIB burden, guide therapy and further consideration for repeat EP ablation. Will defer to primary cellar supervisor, Dr. Escoto Diet modification and wt loss Okay to discharge from a CV standpoint and follow with LAKESHIA MON MD 03/25/20 1304: CARDIAC CONSULT PHYSICAL EXAM General: Alert, Oriented X3, Cooperative HEENT: Atraumatic Lungs: Clear to auscultation Heart: Regular rate Abdomen: Normal bowel sounds Extremities: No clubbing Skin: No rashes Neuro: Normal gait Psych/Mental Status: Mental status NL ASSESSMENT/PLAN ASSESSMENT/PLAN Pt. seen and examined. Agree with above FLYING II INSTRUCTOR note. CHARISSA CHOI APRN Mar 25, 2020 11:42 LAKESHIA CERVANTES MD Mar 25, 2020 13:04
--- NOTE | 2020-03-25 12:30 | NUR ---
SS following for discharge planning. SS reviewed pt chart and discussed with pt RN. Pt is from home with spouse and is currently on room air. Pt on PO Cardizem. Discharge plan is to home when medically ready. SS will continue to follow for discharge planning.
--- NOTE | 2020-03-25 14:03 | PDOC ---
[employer] PROGRESS NOTE Date of Service DOS: DATE: 03/25/20 TIME: 13:59 Chief Complaint Chief Complaint Atrial fibrillation with rapid ventricular response History of heart ablations Stress in life Plan Trend troponin Echocardiogram Continue Cardizem drip Transition to oral once rate is controlled Further recommendations will be based on clinical DVT prophylaxis with Lovenox History of Present Illness History of Present Illness Patient is a 49 year old female with past medical history of atrial fibrillation for more or less 14 years who was in her usual state of health until the day of her admission when she started noticing palpitations. Patient refers having associated shortness of breath no chest discomfort no chest tightness no angina type of symptoms were reported. Patient currently takes flecainide and diltiazem as part of her treatment plan for rate control. She has had ablations in the past and unfortunately she continues to suffer from atrial fibrillation. Patient denies any recent changes to her medications no increase in dosing nor decreasing. The patient also denies fabr-bny-dbnteml medications no herbal supplements and no energy drink intake. Patient was evaluated in the emergency department after being found in atrial fibrillation with rapid ventricular response which has been controlled now with a bolus of 50 mg of Cardizem and a Cardizem drip. 03/25/2020: Patient states she feels well. Denies any chest pain, palpitations, or lightheadedness. Plan for discharge today. Vitals/I&O Vitals/I&O: Vital Signs Date Time Temp Pulse Resp B/P (MAP) Pulse Ox O2 Delivery O2 Flow Rate FiO2 03/25/20 10:35 97.8 72 14 153/92 (112) 99 Room Air 97.8 I & O 03/24/20 03/24/20 03/25/20 15:00 23:00 07:00 Intake Total 2100 ml 125 ml Balance 2100 ml 125 ml Physical Exam General: Alert, Oriented X3, Cooperative Heart: Regular rate Abdomen: Normal bowel sounds Extremities: No clubbing Skin: No rashes Labs Labs: Laboratory Tests Test 03/24/20 16:50 03/24/20 20:30 Troponin I Quantitative < 0.017 ng/mL (0.000-0.055) < 0.017 ng/mL (0.000-0.055) Review of Systems Review of Systems: Denies chest pain, denies shortness of breath, denies abdominal pain. All systems negative. Assessment and Plan Assessmemt and Plan Problems Medical Problems: (1) Afib Status: Acute Comment Review of Relevant I have reviewed the following items felix (where applicable) has been applied. Medications: Current Medications Medications (Trade) Dose Ordered Sig/Fer Route PRN Reason Start Time Stop Time Status Last Admin Dose Admin Enoxaparin Sodium (Lovenox 40mg Syringe) 40 mg Q12HR SQ 03/24/20 21:00 03/25/20 08:30 Aspirin (Aspirin Chewable) 81 mg DAILY PO 03/25/20 09:00 03/25/20 08:29 Vitamin D (Vitamin D3) 2,000 unit DAILY PO 03/25/20 09:00 03/25/20 08:29 Diazepam (Valium) 5 mg TID PO 03/24/20 21:00 03/24/20 21:56 Fish Oil (Fish Oil) 1,000 mg DAILY PO 03/25/20 09:00 03/25/20 08:29 Flecainide Acetate (Tambocor) 100 mg Q12HR PO 03/24/20 21:00 03/25/20 08:28 Diltiazem HCl (Cardizem 24hr Cd) 120 mg DAILY PO 03/24/20 17:00 03/25/20 08:29 Influenza Virus Vaccine Quadrival (Fluzone Quad Syringe) 0.5 ml ONCE ONCE VAX IM 03/24/20 19:00 03/24/20 19:01 DC 03/25/20 09:17 Diltiazem HCl 125 mg/Sodium Chloride 125 ml @ 5 mls/hr CONT PRN IV SEE I/O RECORD 03/25/20 00:00 03/25/20 00:18 Justifications for Admission Other Justification JOE HERMOSILLO MD Mar 25, 2020 14:03
--- NOTE | 2020-03-25 14:10 | PDOC3 ---
Discharge Summary Visit Information Date of Admission: Mar 24, 2020 Date of Discharge: Mar 25, 2020 Final Diagnosis Problems Medical Problems: (1) Afib Status: Acute Brief Hospital Course Allergies Allergies Coded Allergies Type Severity Reaction Last Updated Verified morphine Allergy Intermediate 09/11/18 Yes Vital Signs Vital Signs Date Time Temp Pulse Resp B/P (MAP) Pulse Ox O2 Delivery O2 Flow Rate FiO2 03/25/20 10:35 97.8 72 14 153/92 (112) 99 Room Air 97.8 Lab Results Laboratory Tests Test 03/24/20 13:05 03/24/20 13:20 03/24/20 13:35 03/24/20 16:50 White Blood Count 6.5 x10^3/uL (4.0-11.0) Red Blood Count 5.06 x10^6/uL (3.50-5.40) Hemoglobin 15.0 g/dL (12.0-15.5) Hematocrit 43.8 % (36.0-47.0) Mean Corpuscular Volume 87 fL (79-100) Mean Corpuscular Hemoglobin 30 pg (25-35) Mean Corpuscular Hemoglobin Concent 34 g/dL (31-37) Red Cell Distribution Width 13.2 % (11.5-14.5) Platelet Count 138 x10^3/uL (140-400) Neutrophils (%) (Auto) 60 % (31-73) Lymphocytes (%) (Auto) 30 % (24-48) Monocytes (%) (Auto) 7 % (0-9) Eosinophils (%) (Auto) 3 % (0-3) Basophils (%) (Auto) 0 % (0-3) Neutrophils # (Auto) 3.9 x10^3/uL (1.8-7.7) Lymphocytes # (Auto) 1.9 x10^3/uL (1.0-4.8) Monocytes # (Auto) 0.4 x10^3/uL (0.0-1.1) Eosinophils # (Auto) 0.2 x10^3/uL (0.0-0.7) Basophils # (Auto) 0.0 x10^3/uL (0.0-0.2) Prothrombin Time 12.8 SEC (11.7-14.0) Prothromb Time International Ratio 1.0 (0.8-1.1) Urine Collection Type Unknown Urine Color Yellow Urine Clarity Clear Urine pH 8.0 (<5.0-8.0) Urine Specific [place] <=1.005 (1.000-1.030) Urine Protein Negative mg/dL (NEG-TRACE) Urine Glucose (UA) Negative mg/dL (NEG) Urine Ketones (Stick) Negative mg/dL (NEG) Urine Blood Negative (NEG) Urine Nitrite Negative (NEG) Urine Bilirubin Negative (NEG) Urine Urobilinogen Dipstick 0.2 mg/dL (0.2 mg/dL) Urine Leukocyte Esterase Negative (NEG) Urine RBC 0 /HPF (0-2) Urine WBC 0 /HPF (0-4) Urine Squamous Epithelial Cells Few /LPF Urine Bacteria 0 /HPF (0-FEW) Sodium Level 141 mmol/L (136-145) Potassium Level 3.8 mmol/L (3.5-5.1) Chloride Level 107 mmol/L (98-107) Carbon Dioxide Level 25 mmol/L (21-32) Anion Gap 9 (6-14) Blood Urea Nitrogen 9 mg/dL (7-20) Creatinine 0.7 mg/dL (0.6-1.0) Estimated GFR (Cockcroft-Gault) 88.2 BUN/Creatinine Ratio 13 (6-20) Glucose Level 122 mg/dL (70-99) Calcium Level 8.7 mg/dL (8.5-10.1) Magnesium Level 2.4 mg/dL (1.8-2.4) Total Bilirubin 0.7 mg/dL (0.2-1.0) Aspartate Amino Transf (AST/SGOT) 29 U/L (15-37) Alanine Aminotransferase (ALT/SGPT) 54 U/L (14-59) Alkaline Phosphatase 93 U/L (46-116) Troponin I Quantitative < 0.017 ng/mL (0.000-0.055) < 0.017 ng/mL (0.000-0.055) QI-Kzn-U-Type Natriuretic Peptide 95 pg/mL (0-124) Total Protein 7.6 g/dL (6.4-8.2) Albumin 3.7 g/dL (3.4-5.0) Albumin/Globulin Ratio 0.9 (1.0-1.7) Test 03/24/20 20:30 Troponin I Quantitative < 0.017 ng/mL (0.000-0.055) Laboratory Tests Test 03/24/20 16:50 03/24/20 20:30 Troponin I Quantitative < 0.017 ng/mL (0.000-0.055) < 0.017 ng/mL (0.000-0.055) Brief Hospital Course Ms. Archuleta is a 49 old female who presented with A. fib with RVR. She converted with IV diltiazem bolus and diltiazem infusion. Consults were placed to cardiology. Patient was recommended to continue anticoagulation with aspirin, and outpatient follow-up with cardiology. Stable for discharge Discharge Information Condition at Discharge: Improved Disposition/Orders: D/C to Home Scheduled Aspirin (Children's Aspirin) 81 Mg Tab.chew, 81 MG PO DAILY for heart health , (Reported) Entered as Reported by: CLAUDIO OWEN RN on 09/12/18247 Last Action: Continued on 03/24/20 163 by ZONIA RODRÍGUEZ MD Cholecalciferol (Vitamin D3) (Vitamin D3) 1,000 Unit Tablet, 2 TAB PO DAILY for supplement, #30 Ref 5 (Reported) Entered as Reported by: CLAUDIO OWEN RN on 09/12/18247 Last Action: Continued on 03/24/20 163 by ZONIA RODRÍGUEZ MD Diazepam (Valium) 5 Mg Tablet, 5 MG PO TID, #20 Prescribed by: Carlyn Naidu APRN on 09/22/18 0948 Last Action: Continued on 03/24/20 163 by ZONIA RODRÍGUEZ MD Fish Oil/Dha/Epa (Fish Oil 1,200 Mg Fish Oil) 1 Each Capsule, 1 EACH PO DAILY for supplement , (Reported) Entered as Reported by: CLAUDIO OWEN RN on 09/12/18247 Last Action: Converted on 03/24/201634 by ZONIA RODRÍGUEZ MD Flecainide Acetate (Flecainide Acetate) 100 Mg Tablet, 1 TAB PO BID for rhythm control , #60 Ref 5 (Reported) Entered as Reported by: CLAUDIO OWEN RN on 09/12/18247 Last Action: Converted on 03/24/201634 by ZONIA RODRÍGUEZ MD Glucosamine Sulfate 2KCL (Glucosamine) 1,000 Mg Tablet, 1,000 MG PO DAILY for supplement , (Reported) Entered as Reported by: CLAUDIO OWEN, RN on 09/12/18 0248 Last Action: Converted on 03/24/201634 by ZONIA RODRÍGUEZ MD Methylprednisolone (Medrol) 4 Mg Tab.ds.pk, 1 PKG PO UD, #1 Prescribed by: Carlyn Naidu APRN on 09/22/18 0948 [dilTIAZem HCL] 120 MG CAP.ER.24H, 120 MG PO DAILY for antiarrhytmic for 30 Days, #30 Ref 2 Prescribed by: ZONIA RODRÍGUEZ MD on 09/12/18 1505 Last Action: Converted on 03/24/201634 by ZONIA RODRÍGUEZ MD Justicifation of Admission Dx: Justifications for Admission: Justification of Admission Dx: Yes (uncontrolled afib) JOE HERMOSILLO MD Mar 25, 2020 14:10
--- NOTE | 2020-03-25 15:40 | NUR ---
Discharge Note: PRASAD AMAYA 2 [place] Discharge instructions and discharge home medications reviewed with Patient and a copy given. All questions have been answered and understanding verbalized. The following instructions and handouts were given: A-fib Discontinued IV line Patient discharged to home with home via private vehicle
== END 2020-03-25 14:41 | disposition home or self-care (01) | DRG 309 ==
LOC: ER 12:36 → 2 NORTH 13:40
PROVIDERS: ADMIT Internal Medicine; ATTEND Internal Medicine
PROC: 5A09357 Assistance with Respiratory Ventilation, Less than 24 Consecutive Hours, Continuous Positive Airway Pressure (ICD-10-PCS; principal; 2020-03-25)
DX: I48.0 Paroxysmal atrial fibrillation (principal); Z68.42 Body mass index [BMI] 45.0-49.9, adult; Z79.82 Long term (current) use of aspirin; Z87.442 Personal history of urinary calculi; E78.5 Hyperlipidemia, unspecified; E66.01 Morbid (severe) obesity due to excess calories; M19.90 Unspecified osteoarthritis, unspecified site; Z88.8 Allergy status to other drugs, medicaments and biological substances; Z79.899 Other long term (current) drug therapy
CPT/HCPCS: 36415; 71045; 80053; 81001; 83735; 83880; 84484; 85025; 85610; 90471; 93005; 96365; 96366; 96375; 99285; J1650; J3490; J7030; G0378

== ENCOUNTER 2020-04-13 09:04 | Emergency (ER) | payer OTHER ==
[~2020-04-13] VITALS: Ht 160 cm; Wt 90.9 kg
--- NOTE | 2020-04-13 09:57 | RAD ---
CHEST PA LATERAL Technique: PA and lateral views of the chest were obtained. Clinical History: Reason: chest pain, soa. hx of a-fib / Spl. Instructions: / History: Comparison: None. Findings: The heart and pulmonary vasculature appear within normal limits. There is mild patchy opacity in the lower lungs. The pleural margins are clear. Impression: Mild basal infiltrates likely discoid atelectasis. Electronically signed by: Odilon Sage III, MD (04/13/2020 9:54 AM) [id number]
[2020-04-13] MEDS ORDERED: diazePAM 5 MG TABLET PO ONE (10:15)
[2020-04-13 10:49] VITALS: BP 140/78
[2020-04-13 10:50] LABS: BASO # 0.1 x10^3/uL (0.0-0.2); BASO % 1 % (0-3); EOS # 0.1 x10^3/uL (0.0-0.7); EOS % 2 % (0-3); HEMATOCRIT 42.2 % (36.0-47.0); LYMPH # 1.9 x10^3/uL (1.0-4.8); LYMPH % 27 % (24-48); MEAN CORPUSCULAR HEMOGLOBIN 29 pg (25-35); MEAN CORPUSCULAR HGB CONC 33 g/dL (31-37); MEAN CORPUSCULAR VOLUME 87 fL (79-100); MONO # 0.4 x10^3/uL (0.0-1.1); MONO % 6 % (0-9); NEUT # 4.5 x10^3/uL (1.8-7.7); NEUT % 64 % (31-73); PLATELET COUNT 124 x10^3/uL (140-400); RED BLOOD COUNT 4.84 x10^6/uL (3.50-5.40); RED CELL DISTRIBUTION WIDTH 12.9 % (11.5-14.5)
[2020-04-13 10:55] LABS: CREATININE 0.6 mg/dL (0.6-1.0); GFR 105.4; POTASSIUM 3.8 mmol/L (3.5-5.1)
[2020-04-13] MEDS ORDERED: dilTIAZem IV PUSH 25 MG/5 ML VIAL IVP ONE (11:15)
--- NOTE | 2020-04-13 11:55 | ED.ADGEN ---
Past Medical History Past Medical History: A-Fib, Kidney Stone Additional Past Medical Histor: A FLUTTER, sleep apnea Past Surgical History: Additional Past Surgical Histo: C SECTION X 4, HEART ABLATION Smoking Status: Never Smoker Alcohol Use: None Drug Use: None General Adult EDM: Chief Complaint: Palpitations HPI: HPI: Patient is a 49-year-old female who presents to the emergency room complaining of palpitations. She has a history of atrial fibrillation and states that she believes that she is in this. She has a cardiology appointment later this week. She does have some chest tightness and flushing. She gets this with her atrial fibrillation often. This is her third episode in the last 6 weeks. Typically she is well controlled. She denies missing any of her medications. She has not been ill recently. Review of Systems: Review of Systems: General: Denies fever, chills, sweats, fatigue Eyes: Denies drainage, blurred vision, eye redness HENT: Denies rhinorrhea, sore throat, earache Respiratory: Denies cough, shortness of breath, wheezing Cardiac: Denies edema. Reports palpitations, chest tightness GI: Denies abdominal pain, Nausea, vomiting MSK: Denies back pain, neck pain Skin: Denies rash, jaundice Neuro: Denies headache, dizziness Psychiatric: Denies SI/HI Current Medications: Current Medications Medications (Trade) Dose Ordered Sig/Fer Start Time Stop Time Status Last Admin Dose Admin Diazepam (Valium) 5 mg 1X ONCE 04/13/20 10:15 04/13/20 10:16 DC 04/13/20 09:55 5 MG Diltiazem HCl (Cardizem Iv Push) 20 mg 1X ONCE 04/13/20 11:15 04/13/20 11:16 DC 04/13/20 10:49 20 MG Allergies: Allergies: Allergies Coded Allergies Type Severity Reaction Last Updated Verified morphine Allergy Intermediate 09/11/18 Yes Physical Exam: PE: General: Awake, alert, NAD. Well Nourished, well hydrated. Cooperative HEENT: Atraumatic, EOMI, PERRL, airway patent, moist oral mucosa Neck: Supple, trachea midline Respiratory: CTA bilaterally, normal effort, no wheezing/crackles CV: Irregularly irregular tachycardia, no murmur, cap refill <2 GI: Soft, nondistended, nontender, no masses MSK: No obvious deformities Skin: Warm, dry, intact Neuro: A&O x3, speech NL, sensory and motor grossly intact, no focal deficits Psych: Normal affect, normal mood, not suicidal or homicidal Current Patient Data: Labs: Laboratory Tests Test 04/13/20 09:53 White Blood Count 7.0 x10^3/uL (4.0-11.0) Red Blood Count 4.84 x10^6/uL (3.50-5.40) Hemoglobin 14.0 g/dL (12.0-15.5) Hematocrit 42.2 % (36.0-47.0) Mean Corpuscular Volume 87 fL (79-100) Mean Corpuscular Hemoglobin 29 pg (25-35) Mean Corpuscular Hemoglobin Concent 33 g/dL (31-37) Red Cell Distribution Width 12.9 % (11.5-14.5) Platelet Count 124 x10^3/uL (140-400) L Neutrophils (%) (Auto) 64 % (31-73) Lymphocytes (%) (Auto) 27 % (24-48) Monocytes (%) (Auto) 6 % (0-9) Eosinophils (%) (Auto) 2 % (0-3) Basophils (%) (Auto) 1 % (0-3) Neutrophils # (Auto) 4.5 x10^3/uL (1.8-7.7) Lymphocytes # (Auto) 1.9 x10^3/uL (1.0-4.8) Monocytes # (Auto) 0.4 x10^3/uL (0.0-1.1) Eosinophils # (Auto) 0.1 x10^3/uL (0.0-0.7) Basophils # (Auto) 0.1 x10^3/uL (0.0-0.2) Sodium Level 141 mmol/L (136-145) Potassium Level 3.8 mmol/L (3.5-5.1) Chloride Level 104 mmol/L (98-107) Carbon Dioxide Level 24 mmol/L (21-32) Anion Gap 13 (6-14) Blood Urea Nitrogen 11 mg/dL (7-20) Creatinine 0.6 mg/dL (0.6-1.0) Estimated GFR (Cockcroft-Gault) 105.4 Glucose Level 132 mg/dL (70-99) H Calcium Level 9.0 mg/dL (8.5-10.1) Troponin I Quantitative < 0.017 ng/mL (0.000-0.055) Laboratory Tests 04/13/20 09:53 Laboratory Tests 04/13/20 09:53 Vital Signs: Vital Signs Date Time Temp Pulse Resp B/P (MAP) Pulse Ox O2 Delivery O2 Flow Rate FiO2 04/13/20 10:49 131 140/78 04/13/20 09:27 97.9 20 99 Room Air 97.9 EKG: EKG: [] Heart Score: Risk Factors: Risk Factors: DM, Current or recent (<one month) smoker, HTN, HLP, family history of CAD, obesity. Risk Scores: Score 0 - 3: 2.5% MACE over next 6 weeks - Discharge Home Score 4 - 6: 20.3% MACE over next 6 weeks - Admit for Clinical Observation Score 7 - 10: 72.7% MACE over next 6 weeks - Early Invasive Strategies Radiology/Procedures: Radiology/Procedures: [] Course & Med Decision Making: Course & Med Decision Making Pertinent Labs and Imaging studies reviewed. (See chart for details) Patient is a 49-year-old female with a past medical history of atrial fibri llation who presents to the Emergency Room complaining of palpitations. Upon arrival, EKG was performed and shows the patient is in atrial fibrillation with RVR. Patient does have a history of atrial fibrillation and is on Cardizem. On exam, patient has irregularly irregular tachycardia. Patient was given diltiazem and on re-evaluation patient was rate controlled. CBC, BMP, BNP, troponin, EKG, and CXR were ordered to evaluate for causes of arrhythmia and to evaluate for end stage organ damage. Patient did convert while in the emergency room. She was supplied with her 3 EKGs to get to her engineering mechanic this week. She was offered admission but would like to go home. She will return to the emergency room if her palpitations recur. Patient's test results and vitals while in the ED were fully reviewed and discussed with the patient. Patient is stable and at this time does not need admission to the hospital. We have discussed strict return precautions and the importance of following up with their Primary Care Physician. Patient stated understanding and was given an opportunity to ask any questions. Patient is in agreement with plan. [place] Disclaimer: Dragon Disclaimer: This electronic medical record was generated, in whole or in part, using a voice recognition dictation system. Departure Departure Impression: Primary Impression: Atrial fibrillation with RVR Disposition: 01 DC HOME SELF CARE/HOMELESS Condition: STABLE Referrals: UNKNOWN PCP NAME (PCP) Patient Instructions: Atrial Fibrillation, [id number] MORALES GODFREY MD Apr 13, 2020 11:55
--- NOTE | 2020-04-15 09:40 | EKG ---
[facility] [address] [place] [address] Test Date: 2020-04-13 Test Time: 09:12:09 Pat Name: PRASAD AMAYA Department: Room: Gender: F Hot Room Attendant: : 1970 Requested By: MORALES GODFREY Order Number: [id number] Reading MD: Measurements Intervals [place] Rate: 134 P: WA: QRS: 11 QRSD: 88 T: 18 QT: 314 QTc: 469 Interpretive Statements IRREGULAR RHYTHM, NO P-WAVE FOUND ST & T ABNORMALITY, CONSIDER ANTERIOR ISCHEMIA OR LEFT VENTRICULAR STRAIN INFERIOR ISCHEMIA OR LEFT VENTRICULAR STRAIN ABNORMAL ECG RI6.02 No previous ECG available for comparison
--- NOTE | 2020-04-16 07:32 | EKG ---
[facility] [address] [place] [id number] Test Date: 2020-04-13 Test Time: 11:05:47 Pat Name: PRASAD AMAYA Department: Room: Gender: F Clinical Data Coordinator: : 1970 Requested By: MORALES GODFREY Order Number: [id number] Reading MD: Measurements Intervals [place] Rate: 69 P: [place]: QRS: 22 QRSD: 82 T: 12 QT: 390 QTc: 419 Interpretive Statements IRREGULAR RHYTHM, NO P-WAVE FOUND OTHERWISE NORMAL ECG RI6.01 No previous ECG available for comparison
== END 2020-04-13 12:52 | disposition home or self-care (01) ==
LOC: ER 09:04
DX: I48.20 Chronic atrial fibrillation, unspecified (principal); R07.89 Other chest pain; Z88.5 Allergy status to narcotic agent
CPT/HCPCS: 36415; 71046; 80048; 84484; 85025; 93005; 96374; 99285; J3490